=== PATIENT | male | born 1955 | race Caucasian/White ===

== ENCOUNTER 2024-12-11 14:54 | Inpatient (IN) | payer MEDICARE, MEDICAID ==
[~2024-12-11] VITALS: Ht 182.9 cm; Wt 68.5 kg
[~2024-12-11 14:54] MED LIST: AZEL6DRO5 EACHEYE; CEFD300C17 PO; DOCU-391 PO; METF-438 PO; PHEN-887 PO; SULF1TAB45 PO; tamsulosin
--- NOTE | 2024-12-11 15:17 | Physician Documentation ---
History of Present Illness ~ General Chief Complaint: See Chief Complaint Stated Complaint: MULTIPLE MED COMPLAINTS Time Seen by MD: 16:26 Primary Medical Doctor: NONE History of Present Illness Initial Comments This is a 69-year-old male who presents to the emergency department reporting that he was directed here by Dr. Ritchie for reversal of his colostomy. Patient was recently admitted here November 12, 2024 through November 18, 2024 at which point he had a large bowel obstruction due to a mass and is status post resection and placement of ostomy and Garcia at that time. He does also note that he has a history of type 2 diabetes and Parkinson's. He currently notes that he also has blisters to the backs of both heels. Denies chills or fever, CP or dyspnea. Medication Reconciliation Allergies: Coded Allergies: No Known Allergies (Unverified , 12/11/24) Scheduled Azelastine HCl (Azelastine HCl), 1 DROP EACHEYE BID, (Reported) Cefdinir (Cefdinir), 1 CAP PO BID, (Reported) Docusate Sodium (Docusate Sodium), 1 CAP PO BID, (Reported) Metformin HCl (Metformin HCl), 1 TAB PO BID, (Reported) Phenazopyridine HCl (Phenazopyridine HCl), 1 TAB PO TID, (Reported) Miscellaneous Medications Sulfamethoxazole/Trimethoprim (Septra Ds Tab), 1 TAB PO, (Reported) Discontinued Medications [tamsulosin], (Reported) Discontinued Reason: patient no longer taking [tamsulosin], (Reported) Discontinued Reason: patient no longer taking Past Medical History Past Medical History: Anxiety, Depression Past Surgical History: orthopedic surgeries Patient History: Patient reports no known family medical history. Drug Use: marijuana, other Lives with: Mother Lives In: Home Review of Systems ROS As stated above in the HPI, otherwise all systems are reviewed and negative. Physical Exam Physical Exam Vital Signs: Temperature: 97.5, Source: Temporal, Heart Rate: 102, Respiratory Rate: 16, BP: 92/62, Pulse Oximetry: 95, Weight: 68.500 Oxygen Flow Rate: 0 Physical Exam General: Alert, no apparent distress. Chronically ill appearing. HEENT: PERRL, EOMI, no injection, moist mucous membranes. Neck: Full range of motion. Respiratory: Lungs clear, no respiratory distress. Dim throughout. Chest: No accessory muscle use. Cardiovascular: Regular rate and rhythm, no murmurs. Gastrointestinal: Soft, nontender, nondistended. Bowels sounds present. Ostomy site not examined in triage. Extremities: Generalized weakness, presents in wheelchair. Neurologic: Oriented x4. Psychiatric: Normal mood and affect. Skin: Normal color, warm and dry. Legs not examined in triage. Progress Results/Orders Results/Orders Completed Orders - LUNA FALK MD Ondansetron Inj. (Zofran 4mg/2ml Vial) (12/11/24 17:45) Morphine 4mg/Ml Inj. (Morphine Inj.) (12/11/24 17:45) Vital Signs 12/11/24 12/11/24 12/11/24 12/11/24 15:09 17:32 18:13 18:23 Temp 97.5 Pulse 102 89 94 Resp 16 20 18 12 B/P (MAP) 92/62 101/49 (66) 111/65 (80) Pulse Ox 95 97 92 O2 Flow Rate 0 0 0 12/11/24 12/11/24 12/11/24 12/11/24 18:45 18:45 19:15 19:45 Temp 97.5 97.5 97.5 Pulse 89 93 89 Resp 16 14 12 14 B/P (MAP) 104/68 (80) 107/61 (76) 108/72 (84) Pulse Ox 95 93 96 O2 Flow Rate 0 0 0 Laboratory Tests Test 12/11/24 15:38 12/11/24 18:04 White Blood Count 7.9 Red Blood Count 4.54 L Hemoglobin 13.1 L Hematocrit 38.7 L Mean Corpuscular Volume 85.4 Mean Corpuscular Hemoglobin 28.8 Mean Corpuscular Hemoglobin Concent 33.7 Red Cell Distribution Width 15.8 H Platelet Count 464 H Mean Platelet Volume 6.7 L Neutrophils (%) (Auto) 63.9 Lymphocytes (%) (Auto) 24.5 Monocytes (%) (Auto) 7.8 Eosinophils (%) (Auto) 2.6 Basophils (%) (Auto) 1.2 H Neutrophils # (Auto) 5.0 Lymphocytes # (Auto) 1.9 Monocytes # (Auto) 0.6 Eosinophils # (Auto) 0.2 Basophils # (Auto) 0.1 CBC Comment Prothrombin Time 10.4 INR International Normalized Ratio 1.0 Coagulation Comments Sodium Level 135 Potassium Level 3.7 Chloride Level 99 Carbon Dioxide Level 27.4 Anion Gap 9 Blood Urea Nitrogen 12 Creatinine 0.66 Estimated GFR/1.73 m2 > 90 BUN/Creatinine Ratio 18.2 Glucose Level 269 H Lactic Acid Level 1.6 Calcium Level 8.6 Phosphorus Level 3.8 Magnesium Level 2.1 Total Bilirubin 0.2 Aspartate Amino Transf (AST/SGOT) 20 Alanine Aminotransferase (ALT/SGPT) 20 Alkaline Phosphatase 140 H C-Reactive Protein 0.94 H Pro-B-Type Natriuretic Peptide 651 H Total Protein 7.1 Albumin 3.0 L Globulin 4.1 Albumin/Globulin Ratio 0.7 L Procalcitonin < 0.05 Chemistry Comments Urine Specimen Description Garcia cath Urine Color Yellow Urine Clarity Clear Urine pH 6.0 Urine Specific Mckenzie 1.025 Urine Protein 30 H Urine Glucose (UA) Negative Urine Ketones Negative Urine Occult Blood Moderate H Urine Nitrite Negative Urine Bilirubin Negative Urine Urobilinogen 0.2 Urine Leukocyte Esterase Trace H Urine RBC 10-20 Urine WBC 20-30 H Urine Squamous Epithelial Cells None seen Urine Bacteria Few Urine Fine Granular Casts 0-3 Urine Mucus Few Urine Culture Indicated Indicated Volume Urine Centrifuged 10 ml Urine Comment Microbiology Date/Time Source Procedure Growth Status 12/11/24 18:48 Urine Garcia Cath Urine Culture - Preliminary Culture received. Resulted 12/11/24 15:44 Blood Hand Left Blood Culture - Preliminary NEGATIVE (LESS THAN 24 HOURS) Resulted Consults/PCP Consults/PCP : Additional Comment Consult: I spoke to the internal medicine service, for admission in the hospital Medical Decision Making Additional information obtaine: N/A Findings na Differential Diagnosis 69-year-old male presenting for a colostomy reversal. Patient instructed to come here by Dr. Ritchie. Patient will be admitted to have this done. Addendum ADDENDUM: I was briefly involved in the patient's care at time of admission. The reported plan was to admit for colostomy reversal 8pm: The patient was evaluated by Dr. Ritchie, general surgeon. He states that in fact he is not going to reverse his colostomy at this time. He feels the patient needs a urology consult to determine when his catheter can be removed. He also requests vascular evaluation of his legs, ABIs, given his PAD and wounds. 805pm: Spoke to the admitting residents, and relayed this message. Dima Butterfield MD Departure Disposition: ADMITTED INPATIENT Admitted to Inpatient Unit: to surgeon Impression: Primary Impression: Colostomy care Condition: Guarded Referrals: NO PRIMARY CARE PROVIDER (PCP) Signature Scribe Signature: x Attestation: The note accurately reflects work and decisions made by me.Teresa Espino NP 12/11/24 15:15 TERESA CAMPA NP Dec 11, 2024 15:16 LUNA FALK MD Dec 11, 2024 16:47 DIMA BUTTERFIELD MD Dec 11, 2024 19:22
[2024-12-11 16:03] LABS: MEAN PLATELET VOLUME 6.7 FL (7.4-10.4); RED CELL DISTRIBUTION WIDTH 15.8 % (11.5-14.5)
[2024-12-11 16:26] LABS: INR 1.0 INR
[2024-12-11 16:38] LABS: CREATININE 0.66 MG/DL (0.60-1.10); TOTAL CARBON DIOXIDE 27.4 MMOL/L (24-32); eCRCL 105 ML/MIN; eGFR > 90 ML/MIN
[2024-12-11] MEDS: morphine 4 MG/ML inj SYRINge IV ONE (18:23)
[2024-12-11] MEDS: ondansetron/PF 4mg/2ml inj IV ONE (18:28)
[2024-12-11 18:34] LABS: LEUKOCYTE ESTERASE ,URINE TRACE (Neg); NITRITES, URINE NEGATIVE (Neg); OCCULT BLOOD,URINE MODERATE (Neg)
[2024-12-11 18:43] LABS: UA COLLECTION TYPE FOLEY CATH
[2024-12-11 18:45] LABS: MUCUS STRANDS FEW /LPF (Neg); SQUAMOUS EPITHELIAL CELL,UR NONE SEEN /LPF (FEW)
[2024-12-11 18:47] LABS: FINE GRANULAR CAST 0-3 /LPF (NEGATIVE)
[2024-12-11] MEDS ORDERED: ondansetron/PF 4mg/2ml inj IV PRN (19:30)
[2024-12-11] MEDS ORDERED: magnesium hydroxide 30ml (MOM) UD suspension PO PRN (19:30)
[2024-12-11] MEDS ORDERED: mag hydrox/Alum hydrox/simeth 30ml oral suspension PO PRN (19:30)
[2024-12-11] MEDS ORDERED: magnesium sulf-water 4G/100mL 100 ML IV PRN (19:30)
[2024-12-11] MEDS ORDERED: magnesium sulf-water 2g/50mL 50 ML IV PRN (19:30)
[2024-12-11] MEDS ORDERED: potassium Cl 40MEQ/1/2NS 520ml 520 ML IV PRN (19:30)
[2024-12-11] MEDS ORDERED: magnesium Cl slow-release 64mg tablet PO PRN (19:30)
[2024-12-11] MEDS ORDERED: potassium Cl 20 mEq SR tablet PO PRN ×2 (19:30)
[2024-12-11] MEDS: docusate sod 100mg capsule PO SCH (20:00)
--- NOTE | 2024-12-11 20:08 | PROGRESS NOTE ---
Progress Note ID Providers to CC ~ Progress Note Progress Note: PT SEEN AND EXAMINED-NEEDS ARTERIAL DOPPLER LISA FRY MD Dec 11, 2024 20:08
[2024-12-11 20:17] LABS: PHOSPHORUS 3.8 MG/DL (2.3-4.5); PRO BRAIN NATRIURETIC PEPTIDE 651 PG/ML (0-125)
[2024-12-11] MEDS: K and/or MAG REPLACEMENT MC SCH (20:24)
[2024-12-11 22:00] VITALS: BP 145/78; PULSE 89; RESP 20; TEMP 97.8; O2SAT 96
--- NOTE | 2024-12-11 22:04 | HISTORY AND PHYSICAL-Residence ---
History & Physical Providers to CC Resident Creating Document: REJI ALVAREZ, RES ~ History of Present Illness Primary Medical Doctor: NONE Reason for Admit\Complaint: Black discoloration on right foot History of Present Illness A 69 years old male patient came to the ED reporting that he was advised to come for reversal of colostomy bag by Dr. Ritchie . Patient was discharged from this hospital on November 18 at which he had Sigmoidal mass obstructing colon, eroding into the bladder s/p exploratory laparotomy with en bloc sigmoid colon resection with Dr. Ritchie and Dr. Myers and placement of colostomy bag, Ashley at the time. Patient also reports new onset blackish discoloration on the heel of the right foot. Patient denies redness, swelling, fever, chills, pain. Patient also denies abdominal pain, diarrhea, constipation, reflux, dyspepsia, chest pain, difficulty in breathing, altered level of consciousness. ED physician consulted Dr. Ritchie. As per Dr. Ritchie, he is not planning for colostomy bag reversal for now and advised arterial Doppler of both legs. Allergies: Coded Allergies: No Known Allergies (Unverified , 12/11/24) Home Medications Home Medications Active Reported Phenazopyridine HCl 100 Mg Tablet 1 Tab PO TID [tamsulosin] 0.4mg Septra Ds Tab (Trimethoprim/Sulfamethoxazole) 800 Mg/160 Mg Tablet 1 Tab PO Docusate Sodium 100 Mg Capsule 1 Cap PO BID [tamsulosin] 0.4mg Azelastine HCl 0.05 % Drops 1 Drop EACHEYE BID Cefdinir 300 Mg Capsule 1 Cap PO BID Metformin HCl 1,000 Mg Tablet 1 Tab PO BID Past Medical History Past Medical History Type 2 diabetes mellitus- [id number] Essential tremors Parkinson's disease Past Surgical History Surgical History Comment Shoulder repair surgery, right knee replacement surgery, cholecystectomy Family History Family History: Patient reports no known family medical history. Past Social History Social History Comment Smokes half a pack of cigarettes per day since 14 years of age. Denies any illicit drug abuse over the last 40 years. Quit alcohol 42 years ago. Lives at home with a nephew. Minimally ambulates due to weakness but ambulates independently. 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 Gastrointestinal:No Abdominal pain, vomiting,nausea and melena. Normal appetite. No constipation,diarrhea, hematemesis, Musculoskeletal: No swelling or edema of extremities. Reports blackish discoloration on the right foot Integumentary: No change in skin, hair, nails. No swelling, bruising, abrasions Neurologic: No weakness,No headache, neck pain, numbness or tingling of the extremities, Psychiatric: No delusions, depression, loss of interest in normal activity or change in sleep pattern, hallucinations, suicidal ideations Endocrine: No fatigue, no weakness. polydipsia, polyuria, change in appetite, heat or cold intolerance, sweating, dry skin Hematological: No bleeding, petechiae, bruising Allergies: No asthma or urticaria Exam Vitals: Vital Signs Date Time Temp Pulse Resp B/P (MAP) Pulse Ox O2 Delivery O2 Flow Rate FiO2 12/11/24 18:23 12 12/11/24 18:13 94 111/65 (80) 92 0 12/11/24 15:09 97.5 General: Awake , alert and oriented to time,place, person, not in distress HEENT: Atraumatic, normocephalic, PERRLA, EOMI, anicteric sclera ; pink conjunctiva, moist mucos membranes Neck: Trachea midline. Supple, normal range of motion, no JVD, no lymphadenopathy Chest and Respiratory: Equal breath sounds bilaterally, no tachypnea, wheezing, ronchi,rubs .Chest wall is symmetric and without deformity. Cardiac: S1, S2 heard,Regular rate and rhythm, no murmurs ,no gallops, no rubs. Abdomen: Soft, No tenderness, nondistended, No guarding or rigidity, Coello's sign negative. normal bowel sounds x4 quadrant, no hepatosplenomegaly, surgical incision site is clean and clear with deneen, colostomy bag on left lower quadrant with fecaes MSK: Range of motion of all extremities are normal. There is no joint pain or joint swelling or joint erythema. There is no muscle pain or tenderness or swelling. Extremities: Essential tremors in both upper extremities. 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 Demarcated, dry black eschar measuring 6 cm x5cm in diameter ,with surrounding skin intact with no drainage or tenderness or erythema. Neurological: Mental status exam: alert and consciousness, orientation, memory, speech - Cranial nerve test: Cranial nerves II-XII intact. - Motor system: Normal Nutrition, normal tone, Power 5/5, no involuntary movements - Sensory system: Intact - Reflex testing: Biceps, triceps and knee reflexes 2+ - Cerebellar: Normal Psychiatry: Affect and mood are normal Diagnostic Data Last Recorded Lab Results: 12/12/2443112/12/24431 Diagnostic Data: Laboratory Tests Test 12/11/24 15:38 Prothrombin Time 10.4 SECONDS (9.0-12.0) INR International Normalized Ratio 1.0 INR Coagulation Comments Advance Care Planning Advanced Care plannin - 30 Minutes (I spent a total of 17 minutes on reviewing various resuscitative measures/ACP with the patient at the time of admission. The patient has decided on DNR status) Additional Plan Possible peripheral arterial disease Stage III pressure injury/arterial ulcer/ diabetic foot ulcer Follow up arterial Doppler Dr. Ritchie was consulted. Recommmended arterial doppler Follow up with Dr. Ritchie in the morning with arterial Doppler Urinary tract infection Chronic indwelling ashley Catheter from 11/18/2024 after surgery for Sigmoidal mass obstructing colon, eroding into the bladder No SIRS/sepsis UA is positive for esterase, WBC and bacteria Follow up on urine culture WBC, lactate, procalcitonin are normal IV Rocephin 1 gm daily Patient does not want ashley, consult urology recommendation for Ashley removal in the morning NIDDM type 2 HbA1c is 8.0 on 11/12/24 Lantus 15 units HS daily Placed on hypoglycemia/hypoglycemia protocol Sigmoidal mass obstructing colon, eroding into the bladder s/p exploratory laparotomy with en bloc sigmoid colon resection with Dr. Ritchie and Dr. Myers on 11/13/2024 Patient has colostomy bag Parkinson's disease Essential tremor Advised outpatient management Code status: DNR DVT prophylaxis : SCDs Nutrition: carb Controlled diet Physical therapy: ordered Line/tube: PIV Analgesia/sedation: Morphine Disposition: Continue medical management, Follow up with Dr. Ritchie in the morning with arterial Doppler, consult urology recommendation for Ashley removal Resident attestation The above note has been reviewed and supervised by a senior resident PGY2/PGY3 Patient was seen, examined and discussed with the attending physician Titus Alvarez MD Internal Medicine Resident, PGY 1 Date of Service: Dec 12, 2024 Billing Provider: RHETT REYES MD Addendum Attestation I agree with the residents assessment and plan as below: 69 year old male admitted for with ischemia of the right foot Plan: arterial doppler vascular surgery consult start lantus and short acting insulin ceftriaxone for uti CCT 51 min using HIPPA compliant A/V technology REJI ALVAREZ, RES Dec 11, 2024 22:04 RHETT REYES MD Dec 12, 2024 19:36
[2024-12-11] MEDS ORDERED: dextrose 50%-water 50ml dispensing syringe IV PRN ×2 (22:15)
[2024-12-11] MEDS ORDERED: glucagon, human recombinant 1mg kit SUBCUT PRN (22:15)
[2024-12-11] MEDS ORDERED: DEXTROSE 15 GM of carb/4 tabs (each vial/BOTTLE has 4 tablets) PO PRN ×2 (22:15)
[2024-12-11] MEDS: insulin glargine (Lantus) pen - multi-dose SQ SCH (22:15)
[2024-12-11 23:00] VITALS: RESP 18; O2SAT 96
[2024-12-11] MEDS: CefTRIAXone/D5W-Rocephin 1gm 50 ML IV SCH (23:53)
[2024-12-12 05:00] VITALS: BP 128/78; PULSE 75; RESP 18; TEMP 97.5; O2SAT 97
[2024-12-12 06:06] LABS: MEAN PLATELET VOLUME 6.8 FL (7.4-10.4); RED CELL DISTRIBUTION WIDTH 15.7 % (11.5-14.5)
[2024-12-12 06:14] LABS: CREATININE 0.49 MG/DL (0.60-1.10); TOTAL CARBON DIOXIDE 29.8 MMOL/L (24-32); eCRCL 142 ML/MIN; eGFR > 90 ML/MIN
[2024-12-12] MEDS: INSULIN LISPRO 100 UNIT/ML INSULN.PEN MULTI-DOSE SQ SCH (07:00)
[2024-12-12 08:00] VITALS: RESP 18; O2SAT 96
--- NOTE | 2024-12-12 11:52 | VASCULAR REPORT ---
Ankle Brachial Index - Single Level Date: 12/12/2024 10:22 AM Clinical History: wounds Comparison: VASC VL ARTERIAL on DOS: 12/12/24 Indieftions Bilateral foot wounds Risk Factors Smoking Pressures/Indices Right AB Left AB Brachial 130mmHg Brachial 130mmHg Ankle(PT) 50mmHg 0.38 Ankle(PT) 40mmHg 0.31 Ankle(DP) 40mmHg 0.31 Ankle(DP) no flowmmHg 0 CONCLUSION 1. as aboce 2. Monophasic bilateral PIPELINES SUPERINTENDENT, Right DPA. Occluded Left DPA. 3. Right MNIGO at rest 0.38, Left MINGO at rest 0.31 indicating severe disease.
--- NOTE | 2024-12-12 11:55 | VASCULAR REPORT ---
BILATERAL Lower Extremity Arterial Duplex Date: 12/12/2024 09:54 AM Clinical History: wounds Comparison: VASC VL MINGO on DOS: 12/12/24 Technique: Duplex Doppler evaluation including color Doppler and spectral/pulsed waveform analysis of the lower extremity arteries was performed. Finding: Inarations Bilateral foot wounds VELOCITY AND DOPPLER WAVEFORM ANALYSIS RIGHT cm/se Waveform Severity LEFT cm/se Waveform Severity c c dCFA 44.1 Monophasic dCFA 49.3 Monophasic Prof Fem 56.4 Monophasic Prof Fem 45.0 Monophasic Art. Art Fem Art Occluded Fem Art Occluded Prox. Prox. Fem Art Occluded Fem Art Occluded Mid. Mid. Fem Art Occluded Fem Art Occluded Dist. Dist. Pop Art(AK) Occluded Pop Art(AK) 39.3 Monophasic Pop Art(BK) Occluded Pop Art(BK) 19.0 Monophasic INVESTMENT BANKING ASSOCIATE Dist. 19.7 Monophasic INVESTMENT BANKING ASSOCIATE Dist. 45.2 Monophasic Per Art Dist. 13.7 Monophasic Per Art Dist. 14.0 Monophasic ISAK Dist. 21.1 Monophasic ISAK Dist. Occluded DPA 16.0 Monophasic DPA Occluded CONCLUSION Bilateral BLUEPRINT READER with monophasic flow indicating inflow disease. Occlusions demonstrated Right SFA, Right Pop, Left SFA, Left ISAK, Left DPA. Monophasic flow demonstrated throughout remainder of bilateral lower extremities
--- NOTE | 2024-12-12 14:05 | PROGRESS NOTE ---
Progress Note ID Providers to CC ~ Progress Note Progress Note: quentin noted/cta pending LISA FRY MD Dec 12, 2024 14:05
[2024-12-12 18:00] VITALS: BP 129/78; PULSE 80; RESP 15; TEMP 98; O2SAT 96
--- NOTE | 2024-12-12 19:42 | PROGRESS NOTE ---
Daily Progress Note Providers to CC ~ Antibiotic Timeout Antibiotic Ordered?: Yes Subjective Patient is seen in presence of nursing staff Anna Marie today. Patient is very rude and disrespectful during conversation. Further management per Dr. Carlson Patient has signs of severe peripheral vascular disease bilaterally, in diagnostic studies Occlusions demonstrated Right SFA, Right Pop, Left SFA, Left ISAK, Left DPA.. Objective Vital Signs Date Time Temp Pulse Resp B/P (MAP) Pulse Ox O2 Delivery O2 Flow Rate FiO2 12/12/24 15:10 15 12/12/24 08:00 96 Room Air 0.0 12/12/24 05:00 97.5 75 128/78 (95) Result Diagram: 12/12/24 0432 12/12/24 0432 General-patient not in any acute distress, alert awake oriented, chronically ill-appearing HEENT-atraumatic normocephalic, neck supple without elevated JVD, no thyromegaly or carotid bruit. No lymphadenopathy bilaterally. Eyes-no icterus or pallor seen in eyes Chest-clear to auscultation bilaterally, breathing nonlabored no tachypnea, no wheezing, no crepitation, no crackles. Heart-S1-S2 normal, regular heart rate no murmur Abdomen bowel sounds positive on auscultation, soft nondistended nontender no guarding, no rigidity. [place] present in over midline colostomy bag present. Skin no active skin rash/signs of chronic hyperpigmentation present over lower extremity Neurology-grossly intact, nonfocal alert awake oriented Extremity- no pedal edema able to move all 4 extremities. No pedal pulsations on palpation bilaterally Psychiatry - patient is not confused or agitated , appeared frustrated but somehow cooperated during physical examination Coagulation Studies Laboratory Tests Test 12/11/24 15:38 Prothrombin Time 10.4 SECONDS (9.0-12.0) INR International Normalized Ratio 1.0 INR Coagulation Comments Problem\Assessment\Plan severe peripheral arterial disease Stage III pressure injury/arterial ulcer/ diabetic foot ulcer Follow up arterial Doppler Dr. Ritchie was consulted. Recommmended arterial doppler Further management per Urinary tract infection Chronic indwelling ashley Catheter from 11/18/2024 after surgery for Sigmoidal mass obstructing colon, eroding into the bladder No SIRS/sepsis UA is positive for esterase, WBC and bacteria Follow up on urine culture WBC, lactate, procalcitonin are normal IV Rocephin 1 gm daily DC Ashley, we will contact Urology specialist if needed NIDDM type 2 HbA1c is 8.0 on 11/12/24 Lantus 15 units HS daily Placed on hypoglycemia/hypoglycemia protocol Sigmoidal mass obstructing colon, eroding into the bladder s/p exploratory laparotomy with en bloc sigmoid colon resection with Dr. Ritchie and Dr. Myers on 11/13/2024 Patient has colostomy bag Parkinson's disease Essential tremor Advised outpatient management Code status: DNR DVT prophylaxis : SCDs Nutrition: carb Controlled diet Physical therapy: ordered Line/tube: PIV Analgesia/sedation: Morphine Patient's current condition is guarded we will continue to follow patient along with Dr. Ritchie Date of Service: Dec 12, 2024 Billing Provider: JUWAN BERNAL MD Common Visit Codes: [id number] INP/OBS CARE(HIGH) JUWAN BERNAL MD Dec 12, 2024 19:42
[2024-12-12 20:00] VITALS: RESP 18; O2SAT 98
[2024-12-12 22:00] VITALS: BP 142/82; PULSE 74; RESP 18; TEMP 98.5; O2SAT 98
[2024-12-13] VITALS (7 sets, daily range): BP systolic 108–157; BP diastolic 61–85; PULSE 52–80; RESP 16–18; TEMP 97.2–98.9; O2SAT 96–98
[2024-12-13 05:57] LABS: MEAN PLATELET VOLUME 6.5 FL (7.4-10.4); RED CELL DISTRIBUTION WIDTH 15.5 % (11.5-14.5)
[2024-12-13 06:19] LABS: CREATININE 0.42 MG/DL (0.60-1.10); TOTAL CARBON DIOXIDE 31.8 MMOL/L (24-32); eCRCL 165 ML/MIN; eGFR > 90 ML/MIN
[2024-12-13] MEDS: LidoCAINE 2% Topical Jelly 11mL syringe (UROJET) TOP ONE (16:43)
--- NOTE | 2024-12-13 19:41 | PROGRESS NOTE ---
Daily Progress Note Providers to CC ~ Antibiotic Timeout Antibiotic Ordered?: Yes Subjective Patient was nice today and he apologized for his rude behavior in presence of nursing staff. Dr. Carlson following the patient repeat abdomen and pelvis CT scan done results pending. Dr. Van wants to continue Ashley catheter and ordered cystogram to ensure the bladder is healed. According to her if not completely healed then patient will have urine leak into the abdomen which may require repeat abdominal surgery. Ashley catheter replaced. Patient is able to ambulate Objective Vital Signs Date Time Temp Pulse Resp B/P (MAP) Pulse Ox O2 Delivery O2 Flow Rate FiO2 12/13/24 18:00 97.7 80 16 157/81 (106) 97 Room Air 12/13/24 08:00 0.0 12/13/24 02:23 21 Result Diagram: 12/13/24 0455 12/13/24 0455 General-patient not in any acute distress, alert awake oriented, chronically ill-appearing HEENT-atraumatic normocephalic, neck supple without elevated JVD, no thyromegaly or carotid bruit. No lymphadenopathy bilaterally. Eyes-no icterus or pallor seen in eyes Chest-clear to auscultation bilaterally, breathing nonlabored no tachypnea, no wheezing, no crepitation, no crackles. Heart-S1-S2 normal, regular heart rate no murmur Abdomen bowel sounds positive on auscultation, soft nondistended nontender no guarding, no rigidity. [place] present in over midline colostomy bag present. Skin no active skin rash, signs of chronic hyperpigmentation present over lower extremity Neurology-grossly intact, nonfocal alert awake oriented Extremity- no pedal edema able to move all 4 extremities. 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 Ritchie was consulted. Recommmended arterial doppler Further management per Urinary tract infection Chronic indwelling ashley Catheter from 11/18/2024 after surgery for Sigmoidal mass obstructing colon, eroding into the bladder No SIRS/sepsis UA is positive for esterase, WBC and bacteria Follow up on urine culture WBC, lactate, procalcitonin are normal IV Rocephin 1 gm daily 12/13/24-Dr. Van wants to continue Ashley catheter and ordered cystogram to ensure the bladder is healed. According to her if not completely healed then patient will have urine leak into the abdomen which may require repeat abdominal surgery. Ashley catheter replaced. Patient is able to ambulate NIDDM type 2 HbA1c is 8.0 on 11/12/24 Lantus 15 units HS daily Placed on hypoglycemia/hypoglycemia protocol Sigmoidal mass obstructing colon, eroding into the bladder s/p exploratory laparotomy with en bloc sigmoid colon resection with Dr. Ritchie and Dr. Myers on 11/13/2024 Patient has colostomy bag Parkinson's disease Essential tremor Advised outpatient management Code status: DNR DVT prophylaxis : SCDs Nutrition: carb Controlled diet Physical therapy: ordered Line/tube: PIV Analgesia/sedation: Morphine Patient's current condition is guarded we will continue to follow patient along with Dr. Ritchie and Dr. Van Date of Service: Dec 13, 2024 Billing Provider: JUWAN BERNAL MD Common Visit Codes: [id number] INP/OBS CARE(HIGH) JUWAN BERNAL MD Dec 13, 2024 19:41
--- NOTE | 2024-12-13 20:08 | RADIOLOGY REPORT ---
COMPUTERIZED TOMOGRAPHY ABDOMEN AND PELVIS (CYSTOGRAM) REASON FOR EXAM: Cystogram, evaluate for urine leak s/p bladder repair COMPARISON: CT ABDOMEN+PELVIS W IV CON on DOS: 11/11/24 TECHNIQUE: The exam was performed on a multidetector scanner. A dilute mixture of Omnipaque 300 was instilled into the urinary bladder via a Garcia catheter using gravity to patient tolerance. Utilizing 2.5 mm of collimation, spiral scans were acquired through the pelvis before and after contrast administration. A post void scan was also obtained. Automated exposure control was used. CONTRAST ADMINISTERED: 300 mL dilute cystografin. MEDICATIONS: The patient's medication list was reviewed. RADIATION DOSE: CTDI: 23 mGy DLP: 1981 mGy-cm FINDINGS: The visualized lung bases are grossly clear. There is no pleural effusion. There is no pericardial effusion. The spleen is not enlarged. The liver is at the upper limits of normal for size. Evaluation of the abdominal organs is suboptimal in the absence of intravenous contrast. The gallbladder is surgically absent. Unenhanced appearance of the pancreas is unremarkable. The adrenal glands appear grossly normal. The kidneys are similar in size. There is no hydronephrosis of either kidney. There is a 3 mm nonobstructive calculus at the interpolar region of the right kidney. There is no abdominal aortic aneurysm. There is extensive atherosclerosis. There is some residual contrast within the rectal stump. There is a left lower quadrant colostomy. There is circumferential thickening of the distal colon up to the ostomy consistent with colitis. The colonic stool burden is overall small. The appendix is not seen. There is no pathologic distention of the small bowel. No free fluid is identified in the abdomen or pelvis. There is no pathologic lymphadenopathy identified by size criteria. On the cystogram images, there is a 2.0 cm length region along the left bladder wall with a thickened, polypoid appearance. There is no leakage of contrast from the urinary bladder into the pelvis. Post evacuation, there is trace hyperdensity within a small bowel loop which abuts the left bladder dome suggesting a small fistula. There are degenerative changes throughout the visualized spine. No acute osseous abnormality is identified. 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 No free leakage of bladder contents into the extraperitoneal pelvis. Focally thickened left bladder wall with a polypoid appearance concerning for residual mass. Direct visualization with cystoscopy is recommended.
--- NOTE | 2024-12-13 20:10 | PROGRESS NOTE ---
Progress Note ID Providers to CC ~ Progress Note Progress Note: no complaints/cta pending LISA FRY MD Dec 13, 2024 20:10
[2024-12-14 04:35] LABS: MEAN PLATELET VOLUME 6.0 FL (7.4-10.4); RED CELL DISTRIBUTION WIDTH 15.5 % (11.5-14.5)
[2024-12-14 04:40] LABS: CREATININE 0.52 MG/DL (0.60-1.10); TOTAL CARBON DIOXIDE 32.5 MMOL/L (24-32); eCRCL 134 ML/MIN; eGFR > 90 ML/MIN
[2024-12-14 05:00] VITALS: BP 141/78; PULSE 71; RESP 16; TEMP 97.4; O2SAT 97
[2024-12-14 08:33] VITALS: RESP 16
[2024-12-14] MEDS ORDERED: aminophylline 250mg/10ml inj. IV PRN (10:50)
[2024-12-14] MEDS ORDERED: metoprolol tartrate 1mg/ml inj IV PRN (10:50)
--- NOTE | 2024-12-14 16:21 | PROGRESS NOTE ---
Progress Note ID Providers to CC ~ Progress Note Progress Note: awaiting cta LISA FRY MD Dec 14, 2024 16:21
[2024-12-14 18:00] VITALS: BP 152/77; PULSE 83; RESP 18; TEMP 97.7; O2SAT 95
[2024-12-14 20:00] VITALS: RESP 18
--- NOTE | 2024-12-14 20:31 | PROGRESS NOTE ---
Daily Progress Note Providers to CC ~ Antibiotic Timeout Antibiotic Ordered?: Yes Subjective Patient was seen in presence of nursing staff. Patient was waiting to go to CTA today. Dr. Carlson following the patient. 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 No free leakage of bladder content into extraperitoneal pelvis. Focally thickened left bladder wall with polypoid appearance concerning for residual mass. Objective Vital Signs Date Time Temp Pulse Resp B/P (MAP) Pulse Ox O2 Delivery O2 Flow Rate FiO2 12/14/24 08:33 16 Room Air 0.0 12/14/24 05:00 97.4 71 141/78 (99) 97 12/13/24 20:30 21 Result Diagram: 12/14/2440712/14/24407 General-patient not in any acute distress, alert awake oriented, chronically ill-appearing HEENT-atraumatic normocephalic, neck supple without elevated JVD, no thyromegaly or carotid bruit. No lymphadenopathy bilaterally. Eyes-no icterus or pallor seen in eyes Chest-clear to auscultation bilaterally, breathing nonlabored no tachypnea, no wheezing, no crepitation, no crackles. Heart-S1-S2 normal, regular heart rate no murmur Abdomen bowel sounds positive on auscultation, soft nondistended nontender no guarding, no rigidity. [place] present in over midline colostomy bag present. Ashley catheter in place Skin no active skin rash, signs of chronic hyperpigmentation present over lower extremity Neurology-grossly intact, nonfocal alert awake oriented Extremity- no pedal edema able to move all 4 extremities. 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 Ritchie was consulted. Recommmended arterial doppler Further management per Urinary tract infection Chronic indwelling ashley Catheter from 11/18/2024 after surgery for Sigmoidal mass obstructing colon, eroding into the bladder No SIRS/sepsis UA is positive for esterase, WBC and bacteria Follow up on urine culture WBC, lactate, procalcitonin are normal IV Rocephin 1 gm daily 12/13/24-Dr. Van wants to continue Ashley catheter and ordered cystogram to ensure the bladder is healed. According to her if not completely healed then patient will have urine leak into the abdomen which may require repeat abdominal surgery. Ashley catheter replaced. Patient is able to ambulate 12/14/24-Patient was waiting to go to CTA today. Dr. Carlson following the patient. 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 No free leakage of bladder content into extraperitoneal pelvis. Focally thickened left bladder wall with polypoid appearance concerning for residual mass. NIDDM type 2 HbA1c is 8.0 on 11/12/24 Lantus 15 units HS daily Placed on hypoglycemia/hypoglycemia protocol Sigmoidal mass obstructing colon, eroding into the bladder s/p exploratory laparotomy with en bloc sigmoid colon resection with Dr. Ritchie and Dr. Myers on 11/13/2024 Patient has colostomy bag Parkinson's disease Essential tremor Advised outpatient management Code status: DNR DVT prophylaxis : SCDs Nutrition: carb Controlled diet Physical therapy: ordered Line/tube: PIV Analgesia/sedation: Morphine Patient's current condition is guarded we will continue to follow patient along with Dr. Ritchie and Dr. Van Date of Service: Dec 14, 2024 Billing Provider: JUWAN BERNAL MD Common Visit Codes: [id number] INP/OBS CARE(HIGH) JUWAN BERNAL MD Dec 14, 2024 20:30
[2024-12-14] MEDS: guaiFENesin/DM 10ml UD oral syrup PO PRN (21:06)
[2024-12-15] VITALS (10 sets, daily range): BP systolic 100–137; BP diastolic 54–85; PULSE 61–92; RESP 14–17; TEMP 97–98.7; O2SAT 95–99
[2024-12-15 05:54] LABS: MEAN PLATELET VOLUME 6.8 FL (7.4-10.4); RED CELL DISTRIBUTION WIDTH 15.5 % (11.5-14.5)
[2024-12-15 06:14] LABS: CREATININE 0.50 MG/DL (0.60-1.10); TOTAL CARBON DIOXIDE 26.9 MMOL/L (24-32); eCRCL 139 ML/MIN; eGFR > 90 ML/MIN
[2024-12-15] MEDS: regadenoson 0.4mg/5ml syringe IV PRN (09:09)
--- NOTE | 2024-12-15 11:07 | RADIOLOGY REPORT ---
Procedure: NM NM IRLANDA SCAN Exam Date: 12/15/2024 08:40 AM Reason for study/Clinical History: preop Comparison Study: None Myocardial Perfusion Study with SPECT Technique: The patient received an intravenous injection of 8.8 mCi of technetium-99m sestamibi while at rest. After a short delay, SPECT tomographic images of the heart were obtained. The patient then went to the stress lab where they received an intravenous infusion of 0.[address] andard protocol. 44.9 mCi of technetium-99m sestamibi was injected intravenously immediately after the start of the lexiscan infusion. Gated SPECT tomographic images of the heart were acquired and processed. Findings: No reversible perfusion defect. Fixed inferior wall defect. End diastolic volume: 87 mL End systolic volume: 41 mL The left ventricular ejection fraction is 53 %. (normal greater than 50%) Impression: No reversible defect. Fixed inferior wall defect. The left ventricular ejection fraction is 53 %.
--- NOTE | 2024-12-15 19:59 | PROGRESS NOTE ---
Progress Note ID Providers to CC ~ Progress Note Progress Note: rose neg-awaiting cta LISA FRY MD Dec 15, 2024 19:59
--- NOTE | 2024-12-15 20:05 | PROGRESS NOTE ---
Daily Progress Note Providers to CC ~ Antibiotic Timeout Antibiotic Ordered?: Yes Subjective Patient was seen in presence of nursing staff CT is down unable to get CTA as recommended by Dr. Carlson. Theeiscan negative. Patient ambulating okay participated with physical therapy. Objective Vital Signs Date Time Temp Pulse Resp B/P (MAP) Pulse Ox O2 Delivery O2 Flow Rate FiO2 12/15/24 10:39 97.0 78 17 137/85 (102) 99 Room Air 12/15/24 09:21 0.0 12/15/24 08:00 21 Result Diagram: 12/15/24 0456 12/15/246 General-patient not in any acute distress, alert awake oriented, chronically ill-appearing HEENT-atraumatic normocephalic, neck supple without elevated JVD, no thyromegaly or carotid bruit. No lymphadenopathy bilaterally. Eyes-no icterus or pallor seen in eyes Chest-clear to auscultation bilaterally, breathing nonlabored no tachypnea, no wheezing, no crepitation, no crackles. Heart-S1-S2 normal, regular heart rate no murmur Abdomen bowel sounds positive on auscultation, soft nondistended nontender no guarding, no rigidity. [place] present in over midline colostomy bag present. Ashley catheter in place Skin no active skin rash, signs of chronic hyperpigmentation present over lower extremity Neurology-grossly intact, nonfocal alert awake oriented Extremity- no pedal edema able to move all 4 extremities. 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 Ritchie was consulted. Recommmended arterial doppler CT is down unable to get CTA as recommended by Dr. Carlson. Liset negative. Further management per Urinary tract infection Chronic indwelling ashley Catheter from 11/18/2024 after surgery for Sigmoidal mass obstructing colon, eroding into the bladder No SIRS/sepsis UA is positive for esterase, WBC and bacteria Follow up on urine culture WBC, lactate, procalcitonin are normal IV Rocephin 1 gm daily 12/13/24-Dr. Van wants to continue Ashley catheter and ordered cystogram to ensure the bladder is healed. According to her if not completely healed then patient will have urine leak into the abdomen which may require repeat abdominal surgery. Ashley catheter replaced. Patient is able to ambulate 12/14/24-Patient was waiting to go to CTA today. Dr. Carlson following the patient. 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 No free leakage of bladder content into extraperitoneal pelvis. Focally thickened left bladder wall with polypoid appearance concerning for residual mass. NIDDM type 2 HbA1c is 8.0 on 11/12/24 Lantus 15 units HS daily Placed on hypoglycemia/hypoglycemia protocol Sigmoidal mass obstructing colon, eroding into the bladder s/p exploratory laparotomy with en bloc sigmoid colon resection with Dr. Ritchie and Dr. Myers on 11/13/2024 Patient has colostomy bag Parkinson's disease Essential tremor Advised outpatient management Code status: DNR DVT prophylaxis : SCDs Nutrition: carb Controlled diet Physical therapy: ordered Line/tube: PIV Analgesia/sedation: Morphine Patient's current condition is guarded we will continue to follow patient along with Dr. Ritchie and Dr. Van Date of Service: Dec 15, 2024 Billing Provider: JUWAN BERNAL MD Common Visit Codes: [id number] INP/OBS CARE(HIGH) JUWAN BERNAL MD Dec 15, 2024 20:05
[2024-12-16 03:54] LABS: MEAN PLATELET VOLUME 6.3 FL (7.4-10.4); RED CELL DISTRIBUTION WIDTH 15.5 % (11.5-14.5)
[2024-12-16 04:00] LABS: CREATININE 0.53 MG/DL (0.60-1.10); TOTAL CARBON DIOXIDE 29.2 MMOL/L (24-32); eCRCL 131 ML/MIN; eGFR > 90 ML/MIN
[2024-12-16 06:00] VITALS: BP 99/33; PULSE 60; RESP 20; TEMP 98.6; O2SAT 93
[2024-12-16] MEDS ORDERED: iohexol 350 MG/ML 50ML vial IV ONE ×2 (07:36)
[2024-12-16 08:00] VITALS: RESP 16
--- NOTE | 2024-12-16 11:14 | RADIOLOGY REPORT ---
Exam: CT CTA ABDOMEN LOWER EXTR RUNOFF History: Nonhealing wound. Comparison Study: None Technique: Multidetector spiral CT of the abdomen was performed from lung bases to pubic symphysis. Axial imaging was performed with intravenous contrast following the uneventful administration of 150 ml Omnipaque 350. Coronal and sagittal multiplanar reformats were obtained from the axial data set by the technologist. Radiation Dose : 1. Abdomen/Pelvis: CTDIvol 7.5 mGy, DLP 1061.2 mGy*cm. Findings: Vascular: The celiac, superior and inferior mesenteric arteries are patent. The bilateral renal arteries are patent. The splenic artery is patent. There is noncalcified plaque measuring 9 mm in thickness causing significant, about 75% stenosis of the distal abdominal aorta and about 80% just proximal to the iliac bifurcation. There is marked atherosclerotic calcification in the right common iliac, external and internal iliac arteries. There is occlusion of the right common iliac and external iliac artery. The right internal iliac artery is patent with mild atherosclerotic calcifications. Right hemipelvis/ lower extremity: There is distal reconstitution at the level of the right common femoral artery which shows about 75% stenosis. There is high-grade multifocal severe stenosis of the superficial femoral artery throughout its visualized course this is with a segment of near complete occlusion measuring 3.1 cm in the mid SFA and near complete occlusion in the distal SFA measuring 3.1 cm. The popliteal artery is occluded. The tibioperoneal trunk is occluded. There is opacification of the right anterior tibial and posterior tibial arteries though there is multifocal stenosis from atherosclerotic disease. The right peroneal artery is occluded. Soft tissue swelling in the right lower extremity. No fluid collection. No cortical destruction. Left hemipelvis/ lower extremity: There is high-grade stenosis of the left common iliac artery. Left internal iliac artery is patent. The proximal left external iliac artery shows about 70% stenosis at its origin followed by complete occlusion throughout its visualized course. There is distal reconstitution at the level of the left common femoral artery which also shows about 30% stenosis. There is high-grade multifocal stenosis of the left superficial femoral artery throughout proximal portion and multifocal significant high-grade stenosis in its mid segment with near complete occlusion at its distal segment. There is reconstitution at the level of the popliteal artery which shows an estimated 50% stenosis. The left tibioperoneal trunk is patent. There is moderate multifocal stenosis in the left posterior tibial artery. The left anterior tibial and peroneal arteries are occluded. There soft tissue swelling in the left lower extremity with a possible soft tissue defect in the anterolateral lower extremity. No fluid collection. No cortical destruction. CT angiography abdomen pelvis: Lung Bases: Lung bases are clear. Visualized portions of the heart and pericardium are unremarkable. Liver: The liver is normal in size. No focal lesions. Gallbladder and Biliary Tree: The gallbladder is surgically absent. No intrahepatic or extrahepatic biliary ductal dilatation. Spleen: Unremarkable Pancreas: The pancreas enhances normally and there are no focal lesions. The main pancreatic duct is not dilated. Adrenal Glands: Unremarkable Kidneys: Kidneys enhance symmetrically. No calculi or hydronephrosis. GI tract: The stomach is grossly normal in appearance. Small bowel loops are underdistended. There is a left lower quadrant colostomy. There is diffuse mucosal thickening throughout the colon particularly at the level of the ostomy. Contrast is noted in the rectum but does not extend to the rest of the bowel. No findings to suggest acute appendicitis. Peritoneum/mesentery/retroperitoneum. No evidence of free intraperitoneal air. Small volume abdominopelvic free fluid. No evidence of suspicious lymphadenopathy. Abdominal Wall: Bilateral fat containing inguinal hernia. Urinary Bladder: There is urinary bladder wall thickening. Garcia catheter is present. There is air in the urinary bladder. Pelvic Organs: The prostate is enlarged measuring 5.4 cm. Musculoskeletal: No aggressive focal bony lesions, acute fractures or dislocation. IMPRESSION: 1. 70-80% stenosis of the abdominal aorta in its distal segment and just proximal to the iliac bifurcation respectively. Occlusion of the right common iliac and external iliac arteries. Significant stenosis of the right common femoral artery, multifocal high-grade stenosis of the superficial femoral artery and occlusion of the right popliteal artery. Occlusion of the tibioperoneal trunk the right peroneal artery. Soft tissue swelling of the right leg. 2. Occlusion of the majority of the left external iliac artery. Hmild stenosis of the left common femoral artery. High-grade multifocal stenosis of the majority of the left superficial femoral artery, 50% stenosis of the left popliteal artery. Occlusion of the left anterior tibial and peroneal arteries. Multifocal high-grade stenosis in the left popliteal artery without occlusion. Soft tissue swelling and possible soft tissue defect in the left anterolateral lower extremity.
--- NOTE | 2024-12-16 14:57 | PROGRESS NOTE ---
Progress Progress Note: Patient is knownt o be from partial resection of his bladder. CT Cystogram recently does not show a definitive fistula, but rather an area of concern. I would recommend his catheter stays in place for 2 more weeks, at which point I would recommend repeat cystogram. Problem\Assessment\Plan Problems/Diagnosis: (1) History of bladder repair surgery Status: Chronic Assessment & Plan: CT cystogram shows no definitive fistula, but a trace area of concern. I actually cannot visualize a sure fistula at this time, but would recommend giving the bladder a couple of weeks further with the catheter at which point I would recommend a repeat CT cystogram before removal of the catheter. - Catheter for 2 weeks further - CT cystogram in 2 weeks to evaluate for fistula again Results/Orders Result Diagram: 12/16/24 0320 12/16/24319 Dietary Evaluation Recommendations by RD: Other - see comments Comments: II 12/21 +wnd^proDMdn F/u 12/15: Pt changed to regular diet 12/13 per request PO 100% meals meeting nutrition needs. Glu remains elevated but pt refusing insulin and carb-restricted diet. 2 BM's 12/14 w/ no colostomy volume documented receiving routine colace per EMR. No nutrition interventions at this time. Will continue to follow. Recommendations: 1) Continue regular diet per physician as pt demanding no diet restrictions. If pt to become compliant w/ diet restriction, 75 carb control 2) Bowel care per rx 3) Weekly scaled weights Expected Outcomes/Goals: Meet minimum 75% estimated protein and energy needs, wt maintenance, bowel regularity, wound healing, BG 80-180 mg/dL MICHA EATON MD Dec 16, 2024 14:57
[2024-12-16 18:00] VITALS: BP 130/66; PULSE 82; RESP 17; TEMP 99.4; O2SAT 95
--- NOTE | 2024-12-16 18:59 | PROGRESS NOTE ---
Progress Note ID Providers to CC ~ Progress Note Progress Note: aortibifem LISA FRY MD Dec 16, 2024 18:59
[2024-12-16 20:00] VITALS: RESP 17; O2SAT 95
--- NOTE | 2024-12-16 20:31 | PROGRESS NOTE ---
Daily Progress Note Providers to CC ~ Antibiotic Timeout Antibiotic Ordered?: Yes Subjective Patient had aorta with runoff CTA done today in waiting for Dr. Carlson s recommended. he was feeling very hungry and not feeling happy about it. Later today Dr. Carlson evaluated the patient started patient on regular diet plan for aorti fem surgery in a.m. Objective Vital Signs Date Time Temp Pulse Resp B/P (MAP) Pulse Ox O2 Delivery O2 Flow Rate FiO2 12/16/24 17:16 15 12/16/24 08:00 Room Air 0.0 12/16/24 06:00 98.6 60 99/33 (55) 93 12/15/24 20:45 21 Result Diagram: 12/16/24 0320 12/16/24 0320 General-patient not in any acute distress, alert awake oriented, chronically ill-appearing HEENT-atraumatic normocephalic, neck supple without elevated JVD, no thyromegaly or carotid bruit. No lymphadenopathy bilaterally. Eyes-no icterus or pallor seen in eyes Chest-clear to auscultation bilaterally, breathing nonlabored no tachypnea, no wheezing, no crepitation, no crackles. Heart-S1-S2 normal, regular heart rate no murmur Abdomen bowel sounds positive on auscultation, soft nondistended nontender no guarding, no rigidity. [place] present in over midline colostomy bag present. Ashley catheter in place Skin no active skin rash, signs of chronic hyperpigmentation present over lower extremity Neurology-grossly intact, nonfocal alert awake oriented Extremity- no pedal edema able to move all 4 extremities. 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 Ritchie was consulted. Recommmended arterial doppler CT is down unable to get CTA as recommended by Dr. Carlson. Lexiscan negative. Further management per Urinary tract infection Chronic indwelling ashley Catheter from 11/18/2024 after surgery for Sigmoidal mass obstructing colon, eroding into the bladder No SIRS/sepsis UA is positive for esterase, WBC and bacteria Follow up on urine culture WBC, lactate, procalcitonin are normal IV Rocephin 1 gm daily 12/13/24-Dr. Van wants to continue Ashley catheter and ordered cystogram to ensure the bladder is healed. According to her if not completely healed then patient will have urine leak into the abdomen which may require repeat abdominal surgery. Ashley catheter replaced. Patient is able to ambulate 12/14/24-Patient was waiting to go to CTA today. Dr. Carlson following the patient. 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 No free leakage of bladder content into extraperitoneal pelvis. Focally thickened left bladder wall with polypoid appearance concerning for residual mass. NIDDM type 2 HbA1c is 8.0 on 11/12/24 Lantus 15 units HS daily Placed on hypoglycemia/hypoglycemia protocol Sigmoidal mass obstructing colon, eroding into the bladder s/p exploratory laparotomy with en bloc sigmoid colon resection with Dr. Ritchie and Dr. Myers on 11/13/2024 Patient has colostomy bag Parkinson's disease Essential tremor Advised outpatient management Code status: DNR DVT prophylaxis : SCDs Nutrition: carb Controlled diet Physical therapy: ordered Line/tube: PIV Analgesia/sedation: Morphine Patient's current condition is guarded we will continue to follow patient along with Dr. Ritchie and Dr. Van Date of Service: Dec 16, 2024 Billing Provider: JUWAN BERNAL MD Common Visit Codes: [id number] INP/OBS CARE(HIGH) JUWAN BERNAL MD Dec 16, 2024 20:31
[2024-12-16] MEDS: polyethylene glycol 3350 17gm powd pack PO SCH (21:04)
[2024-12-17] VITALS (26 sets, daily range): BP systolic 86–163; BP diastolic 46–80; PULSE 65–110; RESP 8–18; TEMP 97.8–98.5; O2SAT 95–100
[2024-12-17 05:24] LABS: APTT 26 SECONDS (22-32); INR 1.0 INR
--- NOTE | 2024-12-17 07:01 | RADIOLOGY REPORT ---
CHEST RADIOGRAPH Indication: pre-op Technique: Single frontal view of the chest was obtained Comparison: 11/11/2024 FINDINGS: Lines and Tubes: None Lungs: No focal consolidation. Pleura: No effusion. No pneumothorax. Cardiomediastinal contours: Unremarkable Bones: No acute osseous abnormality. IMPRESSION: 1. No acute cardiopulmonary disease.
--- NOTE | 2024-12-17 07:10 | ELECTROCARDIOGRAPH REPORT ---
[facility] Test Date: 2024-12-17 Test Time: 07:08:22 Pat Name: KAREN JOLLEY Department: [facility] 3N Patient ID: [id number] Room: [place] [address] B Gender: M Kiln Placer: : 1955 Requested By: LISA FRY Order Number: [id number] Reading MD: Dr. MANGO Pierre Measurements Intervals [place] Rate: 77 P: -20 VA: 162 QRS: 37 QRSD: 100 T: 72 QT: 389 QTc: 441 Interpretive Statements Sinus rhythm Minimal ST elevation, inferior leads Electronically Signed On 12-17-2024 9:24:[address] MANGO Pierre Please click the below link to view image of tracing.
[2024-12-17] MEDS ORDERED: heparin 10,000 units/1 ML INJ ONE (09:06)
[2024-12-17] MEDS ORDERED: iohexol 300mg/ml 100ml inj. ONE (09:06)
[2024-12-17] MEDS ORDERED: protamine sulfate 10mg/ml inj. ONE (09:07)
[2024-12-17 10:00] LABS: MEAN PLATELET VOLUME 6.3 FL (7.4-10.4); RED CELL DISTRIBUTION WIDTH 15.8 % (11.5-14.5)
--- NOTE | 2024-12-17 10:14 | PROGRESS NOTE ---
Progress Note ID Providers to CC ~ Progress Note Progress Note: discussed procedure including risks/benefits/alternatives LISA FRY MD Dec 17, 2024 10:14
[2024-12-17 10:16] LABS: CREATININE 0.50 MG/DL (0.60-1.10); TOTAL CARBON DIOXIDE 27.8 MMOL/L (24-32); eCRCL 139 ML/MIN; eGFR > 90 ML/MIN
[2024-12-17] MEDS ORDERED: LIDOcaine 2% (20mg/ml) 5ml vial ONE (12:35)
[2024-12-17] MEDS ORDERED: fentaNYL /PF 50mcg/ml 5ml ampule ONE (12:35)
[2024-12-17] MEDS ORDERED: propofol inj 20 ML IV ONE (12:35)
[2024-12-17] MEDS ORDERED: dexamethasone sod phosphate 4mg/ml inj. ONE (12:35)
[2024-12-17] MEDS ORDERED: MIDAZolam 1 MG/ML 5ML VIAL ONE (12:35)
[2024-12-17] MEDS ORDERED: rocuronium 10mg/ml inj IV ONE ×3 (12:36→16:16)
[2024-12-17] MEDS ORDERED: ondansetron/PF 4mg/2ml inj ONE (12:36)
[2024-12-17] MEDS ORDERED: albumin (Human) 5% 250ml 250 ML IV ONE ×4 (14:09)
[2024-12-17] MEDS ORDERED: albumin (Human) 5% 250ml 750 ML IV ONE (14:10)
[2024-12-17] MEDS ORDERED: ceFOXitin 1000 MG inj ONE ×2 (14:42)
[2024-12-17] MEDS ORDERED: heparin 1,000unit/ml 10ml vial 10 ML ONE (14:48)
[2024-12-17] MEDS ORDERED: nitroPRUSSIDE 0.2mg/mL in NS 100 ML IV SCH (14:55)
[2024-12-17] MEDS ORDERED: morphine 4 MG/ML inj SYRINge IV PRN ×2 (14:55)
[2024-12-17] MEDS ORDERED: hydrALAZINE 20mg/ml inj. IV PRN (14:55)
[2024-12-17] MEDS ORDERED: fentaNYL/PF 50MCG/1 ML 2ML syringe IV PRN ×2 (14:55)
[2024-12-17] MEDS ORDERED: labetalol 20mg/4ml (5mg/ml) syringe IV PRN (14:55)
[2024-12-17] MEDS ORDERED: ondansetron/PF 4mg/2ml inj IV PRN ×3 (14:55→17:40)
[2024-12-17] MEDS ORDERED: fentaNYL/PF 50MCG/1 ML 2ML syringe ONE (16:16)
--- NOTE | 2024-12-17 16:23 | PROGRESS NOTE ---
Anesthesia - Line Placement Line Placement CVP: Internal Jugular (Right) Arterial Line: Radial (Right Radial US Guided Micro catheter) Separate "Sticks": Ultrasound Guidance, Vasc Structure Identified, Patency Confirmed, Entry Observed by [place]. Sterile Protocol or Technique: Sterile Seldinger tech Prep: Chloraprep Complications None TATIANA DEL VALLE MD Dec 17, 2024 16:23
--- NOTE | 2024-12-17 17:37 | OPERATIVE REPORT ---
Operative Report Providers to CC ~ Date of Procedure: Dec 17, 2024 Pre-Operative Diagnosis: PAD Post-Operative Diagnosis SAME as PRE-Op Procedure Performed aortobifem with 16 x 8 graft/bilat fiber machine tender endarterectomy Surgeon: evy chavarria Anesthesiologist: Elie Sarah Type of Anesthesia: General Findings: occluded aorta/bilat fiber machine tender plaque Estimated Blood Loss: 500 ml Specimen Removed: aortic plaque/bilat fiber machine tender plaque LISA FRY MD Dec 17, 2024 17:37
[2024-12-17] MEDS ORDERED: FENTANYL CITRATE/D5W/PF 100 ML IV SCH (17:40)
[2024-12-17] MEDS ORDERED: MIDAZOLAM IN NACL,ISO-OSMOT/PF 100 ML IV PRN (17:40)
[2024-12-17 18:14] LABS: ABG BASE EXCESS -4.7 mmol/L (-2.0-3.0); ABG HCO3 23.3 mmol/L (21.0-28.0); ABG OXYGEN SATURATION 99.6 % (94.0-98.0); ABG PCO2 (T) 56.6 mmHg (35.0-48.0); ABG PH (T) 7.233 (7.350-7.450); ABG PO2 (T) 220.6 mmHg (83.0-108.0); FCOHb 1.7 % (0.5-1.5); FHHb 0.4 % (0.0-5.0); FIO2 70.0 mmHg/%; FMetHb 0.3 % (0.0-1.5); FO2Hb 97.6 % (94.0-98.0); PATIENT TEMPERATURE 37.0; PEEP 5 cm H2O; RESPIRATORY RATE 8 b/min; TIDAL VOLUME 550 mL; TOTAL HEMOGLOBIN 11.9 G/dl (13.5-17.5)
--- NOTE | 2024-12-17 18:17 | OPERATIVE REPORT ---
DATE OF SURGERY: 12/17/2024 DICTATING PHYSICIAN: Darryn Ritchie MD PREOPERATIVE DIAGNOSES: Multilevel peripheral vascular disease with diminished MINGO and symptomatic claudication. POSTOPERATIVE DIAGNOSES: Multilevel peripheral vascular disease with diminished MINGO and symptomatic claudication. PROCEDURES PERFORMED: Aortobifemoral bypass using a 16 x 8 graft in an end-to-side fashion off the aorta. Bilateral common femoral endarterectomy. SURGEON: Darryn Ritchie MD PRINTER HELPER: Oren. ANESTHESIA: General/Dr. Sarah. DRAINS: None. INDICATIONS FOR OPERATION: A 69-year-old male with a history of colon cancer, ended up with a nonhealing wound of the right heel. Ultimately found to have severe peripheral arterial disease with ABIs of approximately 0.[address] revealed occluded iliacs. The patient was taken to surgery for aortobifem. INTRAOPERATIVE FINDINGS: The patient had extensive aortic calcification with an occluded distal abdominal aorta. The femorals had severe plaque bilaterally requiring endarterectomy. DESCRIPTION OF PROCEDURE: The patient was placed supine on the operating table. After the induction of general anesthesia and placement of endotracheal tube, the left lower extremity was prepped and draped after the colostomy was closed. After a timeout was performed, attention was turned to the left groin where a longitudinal incision was made, the femoral sheath was identified and incised, and the common femoral artery was identified and isolated. Same procedure was then repeated in the right groin. A midline incision was then made in the abdomen. The abdominal cavity was entered and adhesions were taken down. The patient had extensive small bowel adhesions from his previous laparotomy and colon resection, which made the exposure somewhat difficult. The posterior peritoneum was incised exposing the infrarenal abdominal aorta. The incision was extended down to the aortic bifurcation. For exposure, tunnels were created between the aorta and both groins retroperitoneally. A 16 x 8 bifemoral graft was then brought to the field and passed through the tunnels that were created. The patient was heparinized with 6000 units of heparin. After a few minutes, the aorta was occluded and arteriotomy was extended proximally and distally. He had a large amount of clot within the aorta, which required removal to obtain adequate inflow. Adequate inflow was subsequently established. The graft was then beveled and the end-to-side anastomosis was constructed with a running suture of 4-0 Prolene. Upon completion of the suture line, the limbs of the graft were flushed. Hemostasis was found to be adequate. Attention was then turned to the right groin where the common femoral artery was occluded proximally and incised. The profunda was occluded. An endarterectomy of the right common femoral artery was then performed. The graft was trimmed to length and end-to-side anastomosis was constructed with a running suture of 5-0 Prolene. Flow was reestablished to the right lower extremity. Attention was turned to the left groin where in a similar fashion, the common femoral artery was occluded. An arteriotomy was made proximally and distally. The graft was trimmed to length. An endarterectomy was performed of the left common femoral artery and an end-to-side anastomosis was constructed with a running suture of 5-0 Prolene. The flow was then established to the left lower extremity. The patient had good flow in the profunda branches bilaterally. Hemostasis was found to be adequate. The posterior peritoneum was then closed over the graft with a running suture of 2-0 Vicryl. The wound was irrigated with a large amount of antibiotic-containing solution. The rectus fascia was closed with a running looped PDS suture. The skin was closed with clips. Dressing was applied and the colostomy was opened. Groin incisions were closed in layers. Skin was closed with clips. A Prevena was placed. The patient was subsequently transferred to the ICU in critical condition after reversing from general anesthesia. Darryn Ritchie MD TID: [id number] RECEIPT: [id number] /[facility]
[2024-12-17] MEDS: propofol 1000mg/100ml bottle 100 ML IV SCH (18:20)
[2024-12-17] MEDS ORDERED: FENTANYL-0.9 % NACL/PF 100 ML IV SCH (18:20)
[2024-12-17] MEDS: FENTANYL-0.9 % NACL/PF 100 ML IV SCH (18:33)
[2024-12-17] MEDS: propofol 1000mg/100ml bottle 100 ML IV ONE (18:35)
[2024-12-17] MEDS: niCARDipine-NS 40mg/200ml IVPB 200 ML IV ONE (18:39)
--- NOTE | 2024-12-17 18:50 | PROGRESS NOTE ---
Daily Progress Note Providers to CC ~ Antibiotic Timeout Antibiotic Ordered?: Yes Subjective Patient is waiting to go for aortobifemoral surgical procedure with Dr. Cralson today. He was transferred later today to CICU and was intubated. Objective Vital Signs Date Time Temp Pulse Resp B/P (MAP) Pulse Ox O2 Delivery O2 Flow Rate FiO2 12/17/24 18:14 50 12/17/24 18:02 94 8 100 12/17/24 12:10 97.8 130/75 (93) 12/17/24 11:35 Room Air 12/17/24 08:06 0.0 Result Diagram: 12/17/2492312/17/24 0924 General-patient not in any acute distress, alert awake oriented, chronically ill-appearing HEENT-atraumatic normocephalic, neck supple without elevated JVD, no thyromegaly or carotid bruit. No lymphadenopathy bilaterally. Eyes-no icterus or pallor seen in eyes Chest-clear to auscultation bilaterally, breathing nonlabored no tachypnea, no wheezing, no crepitation, no crackles. Heart-S1-S2 normal, regular heart rate no murmur Abdomen bowel sounds positive on auscultation, soft nondistended nontender no guarding, no rigidity. [place] present in over midline colostomy bag present. Ashley catheter in place Skin no active skin rash, signs of chronic hyperpigmentation present over lower extremity Neurology-grossly intact, nonfocal alert awake oriented Extremity- no pedal edema able to move all 4 extremities. No pedal pulsations on palpation bilaterally Psychiatry - patient is not confused or agitated , cooperated during physical examination Coagulation Studies Laboratory Tests Test 12/17/24 18:18 Coagulation Comments Problem\Assessment\Plan severe peripheral arterial disease Stage III pressure injury/arterial ulcer/ diabetic foot ulcer Follow up arterial Doppler Dr. Ritchie was consulted. Recommmended arterial doppler CT is down unable to get CTA as recommended by Dr. Carlson. Lexiscan negative. Further management per 12/17-Patient is waiting to go for aortobifemoral surgical procedure with Dr. Carlson today. He was transferred later today to CICU and was intubated. Urinary tract infection Chronic indwelling ashley Catheter from 11/18/2024 after surgery for Sigmoidal mass obstructing colon, eroding into the bladder No SIRS/sepsis UA is positive for esterase, WBC and bacteria Follow up on urine culture WBC, lactate, procalcitonin are normal IV Rocephin 1 gm daily 12/13/24-Dr. Van wants to continue Ashley catheter and ordered cystogram to ensure the bladder is healed. According to her if not completely healed then patient will have urine leak into the abdomen which may require repeat abdominal surgery. Ashley catheter replaced. Patient is able to ambulate 12/14/24-Patient was waiting to go to CTA today. Dr. Carlson following the patient. 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 No free leakage of bladder content into extraperitoneal pelvis. Focally thickened left bladder wall with polypoid appearance concerning for residual mass. NIDDM type 2 HbA1c is 8.0 on 11/12/24 Lantus 15 units HS daily Placed on hypoglycemia/hypoglycemia protocol Sigmoidal mass obstructing colon, eroding into the bladder s/p exploratory laparotomy with en bloc sigmoid colon resection with Dr. Ritchie and Dr. Myers on 11/13/2024 Patient has colostomy bag Parkinson's disease Essential tremor Advised outpatient management Code status: DNR DVT prophylaxis : SCDs Nutrition: carb Controlled diet Physical therapy: ordered Line/tube: PIV Analgesia/sedation: Morphine Patient's current condition is guarded we will continue to follow patient along with Dr. Ritchie and Dr. Van in CICU Date of Service: Dec 17, 2024 Billing Provider: JUWAN BERNAL MD Common Visit Codes: [id number] INP/OBS CARE(HIGH) JUWAN BERNAL MD Dec 17, 2024 18:50
[2024-12-17 18:53] LABS: INR 1.2 INR
[2024-12-17 19:06] LABS: APTT > 139 SECONDS (22-32)
[2024-12-17] MEDS: albumin (Human) 5% 250ml 250 ML IV ONE ×2 (20:20→20:25)
--- NOTE | 2024-12-17 21:27 | RADIOLOGY REPORT ---
CHEST RADIOGRAPH Indication: POST OP Technique: Single frontal view of the chest was obtained COMPARISON: DI CHEST,SINGLE VIEW on DOS: 12/17/24 FINDINGS: ET tube tip terminating approximately 7 cm above the melissa. NG tube in the proximal stomach. Right IJ line with tip in the lower SVC. Minimal bibasilar atelectasis. Lungs otherwise generally clear. IMPRESSION: Mild bibasilar atelectasis.
[2024-12-17] MEDS: NORepinephrine 8mg/ 250ml NS 250 ML IV SCH (23:07)
[2024-12-17] MEDS: nitroPRUSSIDE 0.2mg/mL in NS 100 ML IV SCH (23:07)
[2024-12-17] MEDS: ringers solution, lacted 1,000 ML IV SCH ×2 (23:08)
[2024-12-18] VITALS (28 sets, daily range): BP systolic 96–155; BP diastolic 44–67; PULSE 72–87; RESP 12–24; O2SAT 92–100
[2024-12-18] MEDS: INSULIN LISPRO 100 UNIT/ML INSULN.PEN MULTI-DOSE SQ ONE (01:54)
[2024-12-18 03:02] LABS: MEAN PLATELET VOLUME 6.3 FL (7.4-10.4); RED CELL DISTRIBUTION WIDTH 15.6 % (11.5-14.5)
[2024-12-18 03:18] LABS: CREATININE 0.49 MG/DL (0.60-1.10); PHOSPHORUS 3.6 MG/DL (2.3-4.5); TOTAL CARBON DIOXIDE 25.2 MMOL/L (24-32); eCRCL 142 ML/MIN; eGFR > 90 ML/MIN
[2024-12-18 03:30] LABS: APTT 27 SECONDS (22-32); INR 1.1 INR
[2024-12-18 03:38] LABS: ABG BASE EXCESS -3.8 mmol/L (-2.0-3.0); ABG HCO3 20.2 mmol/L (21.0-28.0); ABG OXYGEN SATURATION 98.5 % (94.0-98.0); ABG PCO2 (T) 32.3 mmHg (35.0-48.0); ABG PH (T) 7.411 (7.350-7.450); ABG PO2 (T) 112.3 mmHg (83.0-108.0); FCOHb 1.8 % (0.5-1.5); FHHb 1.5 % (0.0-5.0); FIO2 40.0 mmHg/%; FMetHb 0.3 % (0.0-1.5); FO2Hb 96.4 % (94.0-98.0); MODE SIMV; PATIENT TEMPERATURE 36.3; PEEP 5 cm H2O; RESPIRATORY RATE 14 b/min; TIDAL VOLUME 550 mL; TOTAL HEMOGLOBIN 11.8 G/dl (13.5-17.5)
[2024-12-18] MEDS: ringers solution, lacted 1,000 ML IV SCH ×2 (04:55→05:11)
[2024-12-18] MEDS: niCARDipine-NS 40mg/200ml IVPB 200 ML IV SCH (05:10)
[2024-12-18] MEDS ORDERED: dextrose 50%-water 50ml dispensing syringe IV PRN (08:05)
[2024-12-18] MEDS ORDERED: glucagon, human recombinant 1mg kit SUBCUT PRN (08:05)
[2024-12-18] MEDS ORDERED: DEXTROSE 15 GM of carb/4 tabs (each vial/BOTTLE has 4 tablets) PO PRN ×2 (08:05)
--- NOTE | 2024-12-18 08:09 | RADIOLOGY REPORT ---
CHEST RADIOGRAPH Indication: ET Tube PLacement Technique: Single frontal view of the chest was obtained Comparison: DI CHEST,SINGLE VIEW on DOS: 12/17/24, DI CHEST,SINGLE VIEW on DOS: 12/17/24, DI CHEST,SINGLE VIEW on DOS: 12/17/24 FINDINGS: ET tube tip terminating approximately 7 cm above the melissa. NG tube in the proximal stomach. Right IJ line with tip in the lower SVC. Minimal bibasilar atelectasis. Lungs otherwise generally clear. IMPRESSION: 1. Mild bibasilar atelectasis.
[2024-12-18] MEDS: INSULIN LISPRO 100 UNIT/ML INSULN.PEN MULTI-DOSE SQ SCH (08:30)
[2024-12-18] MEDS ORDERED: HYDROmorphone inj. 0.5 MG/0.5 ML DISP.SYRIN IV PRN (11:35)
--- NOTE | 2024-12-18 12:08 | VASCULAR REPORT ---
Ankle Brachial Index - Single Level Date: 12/18/2024 10:55 AM Clinical History: PAD Comparison: VASC VL MINGO on DOS: 12/12/24, VASC VL ARTERIAL on DOS: 12/12/24 Findings: Indeations Aortobifemoral bypass, bilateral [employer] endarterectomy 12/17/2024 Risk Factors Diabetes Smoking Surgery/Intervention Bypass Graft 1 : Pressures/Indices Right MINGO Left AB Brachial Brachial 126mmHg Ankle(PT) 90mmHg 0.71 Ankle(PT) 60mmHg 0.48 Ankle(DP) 70mmHg 0.5 Ankle(DP) 60mmHg 0.48 CONCLUSION 2. Monophasic bilaterally. 3. Right MINGO at rest 0.71, Left MINGO at rest 0.48 indicating moderate disease bilaterally.
[2024-12-18] MEDS ORDERED: metoclopramide 5 mg/ml inj IV PRN (14:20)
[2024-12-18] MEDS ORDERED: FENTANYL-0.9 % NACL/PF 100 ML IV SCH (14:30)
[2024-12-18] MEDS: HYDROmorph/NS 0.2 mg/ml PCA 100 ML IV SCH (15:09)
[2024-12-18] MEDS ORDERED: OXYC-145 PO (16:07)
--- NOTE | 2024-12-18 19:32 | PROGRESS NOTE ---
Daily Progress Note Providers to CC ~ Antibiotic Timeout Antibiotic Ordered?: Yes Subjective Patient was seen in CICU in presence of nursing staff currently on pressor agent he is extubated. Mildly lethargic partially cooperated during exam Objective Vital Signs Date Time Temp Pulse Resp B/P (MAP) Pulse Ox O2 Delivery O2 Flow Rate FiO2 12/18/24 18:16 15 12/18/24 18:00 82 121/62 (81) 94 Room Air 12/18/24 15:00 2.0 12/18/24 14:00 97.9 12/18/24 10:26 30 Result Diagram: 12/18/24 0247 12/18/24 0247 General-patient is chronically ill-appearing, mildly lethargic HEENT-atraumatic normocephalic, neck supple without elevated JVD, Eyes-no icterus or pallor seen in eyes Chest-decreased lung sounds to auscultation bilaterally, Heart-S1-S2 normal, regular heart rate no murmur Abdomen -bowel sounds positive on auscultation, soft nondistended nontender no guarding, no rigidity. [place] present in over midline colostomy bag present. Ashley catheter in place . Bilateral surgical wound present in groin , dressing in place Skin -signs of chronic hyperpigmentation present over lower extremity Neurology-mildly lethargic partially cooperated during physical exam Extremity- no pedal edema able to move all upper extremities. No pedal pulsations on palpation bilaterally Coagulation Studies Laboratory Tests Test 12/18/24 02:47 Prothrombin Time 11.3 SECONDS (9.0-12.0) INR International Normalized Ratio 1.1 INR Activated Partial Thromboplast Time 27 SECONDS (22-32) Coagulation Comments Problem\Assessment\Plan severe peripheral arterial disease Stage III pressure injury/arterial ulcer/ diabetic foot ulcer Follow up arterial Doppler Dr. Ritchie was consulted. Recommmended arterial doppler CT is down unable to get CTA as recommended by Dr. Carlson. Lexiscan negative. Further management per 12/17-Patient is waiting to go for aortobifemoral surgical procedure with Dr. Carlson today. He was transferred later today to CICU and was intubated. 12/18-status post aortobifemoral bypass, bilateral common femoral endarterectomy Urinary tract infection Chronic indwelling ashley Catheter from 11/18/2024 after surgery for Sigmoidal mass obstructing colon, eroding into the bladder No SIRS/sepsis UA is positive for esterase, WBC and bacteria Follow up on urine culture WBC, lactate, procalcitonin are normal IV Rocephin 1 gm daily 12/13/24-Dr. Van wants to continue Ashley catheter and ordered cystogram to ensure the bladder is healed. According to her if not completely healed then patient will have urine leak into the abdomen which may require repeat abdominal surgery. Ashley catheter replaced. Patient is able to ambulate 12/14/24-Patient was waiting to go to CTA today. Dr. Carlson following the patient. 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 No free leakage of bladder content into extraperitoneal pelvis. Focally thickened left bladder wall with polypoid appearance concerning for residual mass. NIDDM type 2 HbA1c is 8.0 on 11/12/24 Lantus 15 units HS daily Placed on hypoglycemia/hypoglycemia protocol Sigmoidal mass obstructing colon, eroding into the bladder s/p exploratory laparotomy with en bloc sigmoid colon resection with Dr. Ritchie and Dr. Myers on 11/13/2024 Patient has colostomy bag Parkinson's disease Essential tremor Advised outpatient management Code status: DNR DVT prophylaxis : SCDs Nutrition: carb Controlled diet Physical therapy: ordered Line/tube: PIV Analgesia/sedation: Morphine Patient's current condition is guarded we will continue to follow patient along with Dr. Ritchie and Dr. Van in CICU Date of Service: Dec 18, 2024 Billing Provider: JUWAN BERNAL MD Common Visit Codes: [id number] INP/OBS CARE(MOD) JUWAN BERNAL MD Dec 18, 2024 19:32
[2024-12-18] MEDS: mineral oil/petrolatum ophthal oint EACHEYE SCH (20:00)
[2024-12-18] MEDS: metoclopramide 5 mg/ml inj IV SCH (20:01)
[2024-12-19] VITALS (20 sets, daily range): BP systolic 102–149; BP diastolic 52–79; PULSE 73–89; RESP 9–18; TEMP 97.6–97.8; O2SAT 88–98
--- NOTE | 2024-12-19 00:23 | PROGRESS NOTE ---
Progress Note ID Providers to CC ~ Progress Note Progress Note: complains of pain/vss/LE well perfused/labs noted a/p 1. s/p aortobifem-doing well/start pt LISA FRY MD Dec 19, 2024 00:23
[2024-12-19 05:31] LABS: MEAN PLATELET VOLUME 6.4 FL (7.4-10.4); RED CELL DISTRIBUTION WIDTH 15.2 % (11.5-14.5)
[2024-12-19 05:42] LABS: CREATININE 0.44 MG/DL (0.60-1.10); PHOSPHORUS 2.4 MG/DL (2.3-4.5); TOTAL CARBON DIOXIDE 32.4 MMOL/L (24-32); eCRCL 158 ML/MIN; eGFR > 90 ML/MIN
--- NOTE | 2024-12-19 12:54 | PROGRESS NOTE ---
Progress Note ID Providers to CC ~ Progress Note Progress Note: pain improving/vss/abd-min distention/LE-well perfused/labs noted a/p 1. s/p aortobifem-doing well/advance diet-to tele-resume pt LISA FRY MD Dec 19, 2024 12:54
--- NOTE | 2024-12-19 16:45 | CONSULTATION ---
DATE OF CONSULTATION: 12/11/2024 DICTATING PHYSICIAN: Darryn Ritchie MD HISTORY OF PRESENT ILLNESS: The patient is a 69-year-old male, well known to me, recently hospitalized with a colonic mass involving the bladder for which he underwent a sigmoid resection with end colostomy and bladder reconstruction after resection. The patient did reasonably well. He was recently at ____ requesting colostomy reversal as well as complaining of a right foot area of discoloration. The patient was transferred to [facility] for further evaluation and treatment. Further questioning, he complaints of rest pain. He has a long history of tobacco use. No previous history of vascular disease. He does have a history of diabetes. PAST MEDICAL HISTORY: Diabetes, Parkinson's, recently diagnosed colon cancer. PAST SURGICAL HISTORY: Sigmoid resection with bladder resection and bladder reconstruction. HOME MEDICATIONS: Include Septra, Colace, azelastine, cefdinir, metformin. ALLERGIES: None. SOCIAL HISTORY: Ongoing tobacco use. PHYSICAL EXAMINATION: GENERAL: The patient is a well-nourished, thin male, in minimal distress. VITAL SIGNS: Unremarkable. HEART: Regular rate and rhythm. LUNGS: Clear to auscultation. ABDOMEN: Well-healed incision with a patent colostomy. EXTREMITIES: Right lower extremity has a nonhealing wound of the heel with some discoloration with diminished pedal pulses. LABORATORY DATA: Includes WBC 7, hematocrit 38, platelet count 464. Chemistries unremarkable. IMPRESSION: * Status post colostomy for colon cancer. * Right foot discoloration, question of vascular disease. * History of diabetes. * History of Parkinson's. RECOMMENDATIONS: Lower extremity Doppler studies with a CTA to better define lower extremity anatomy. Continue wound care. Consult Urology regarding bladder dysfunction. Darryn Ritchie MD TID: [id number] RECEIPT: [id number] KB/SUM
[2024-12-19] MEDS: aspirin 81mg, enteric-coated 1 TAB TABLET.DR PO SCH (18:02)
--- NOTE | 2024-12-19 20:13 | PROGRESS NOTE ---
Daily Progress Note Providers to CC ~ Antibiotic Timeout Antibiotic Ordered?: Yes Subjective Patient was seen in CICU he is already extubated looks comfortable and he mentioned that he do not want anybody to change his medication except for Dr. Carlson Objective Vital Signs Date Time Temp Pulse Resp B/P (MAP) Pulse Ox O2 Delivery O2 Flow Rate FiO2 12/19/24 17:29 89 12/19/24 17:00 14 12/19/24 17:00 128/78 (95) Room Air 12/19/24 16:00 88 12/19/24 13:00 98.8 12/19/24 03:00 2.0 12/18/24 10:26 30 Result Diagram: 12/19/24 0500 12/19/24 0500 General-patient is chronically ill-appearing, not lethargic looks comfortable HEENT-atraumatic normocephalic, neck supple without elevated JVD, Eyes-no icterus or pallor seen in eyes Chest-decreased lung sounds to auscultation bilaterally, Heart-S1-S2 normal, regular heart rate no murmur Abdomen -bowel sounds positive on auscultation, soft nondistended nontender no guarding, no rigidity. [place] present in over midline colostomy bag present. Ashley catheter in place . Bilateral surgical wound present in groin , dressing in place Skin -signs of chronic hyperpigmentation present over lower extremity Neurology-mildly lethargic partially cooperated during physical exam Extremity- no pedal edema able to move all upper extremities. No pedal pulsations on palpation bilaterally Coagulation Studies Laboratory Tests Test 12/18/24 02:47 Prothrombin Time 11.3 SECONDS (9.0-12.0) INR International Normalized Ratio 1.1 INR Activated Partial Thromboplast Time 27 SECONDS (22-32) Coagulation Comments Problem\Assessment\Plan severe peripheral arterial disease Stage III pressure injury/arterial ulcer/ diabetic foot ulcer Follow up arterial Doppler Dr. Ritchie was consulted. Recommmended arterial doppler CT is down unable to get CTA as recommended by Dr. Carlson. Lexiscan negative. Further management per 12/17-Patient is waiting to go for aortobifemoral surgical procedure with Dr. Carlson today. He was transferred later today to CICU and was intubated. 12/18-status post aortobifemoral bypass, bilateral common femoral endarterectomy Urinary tract infection Chronic indwelling ashley Catheter from 11/18/2024 after surgery for Sigmoidal mass obstructing colon, eroding into the bladder No SIRS/sepsis UA is positive for esterase, WBC and bacteria Follow up on urine culture WBC, lactate, procalcitonin are normal IV Rocephin 1 gm daily 12/13/24-Dr. Van wants to continue Ashley catheter and ordered cystogram to ensure the bladder is healed. According to her if not completely healed then patient will have urine leak into the abdomen which may require repeat abdominal surgery. Ashley catheter replaced. Patient is able to ambulate 12/14/24-Patient was waiting to go to CTA today. Dr. Carlson following the patient. 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 No free leakage of bladder content into extraperitoneal pelvis. Focally thickened left bladder wall with polypoid appearance concerning for residual mass. NIDDM type 2 HbA1c is 8.0 on 11/12/24 Lantus 15 units HS daily Placed on hypoglycemia/hypoglycemia protocol Sigmoidal mass obstructing colon, eroding into the bladder s/p exploratory laparotomy with en bloc sigmoid colon resection with Dr. Ritchie and Dr. Myers on 11/13/2024 Patient has colostomy bag Parkinson's disease Essential tremor Advised outpatient management Code status: DNR DVT prophylaxis : SCDs Nutrition: carb Controlled diet Physical therapy: ordered Line/tube: PIV Analgesia/sedation: Morphine Patient's current condition is guarded we will continue to follow patient along with Dr. Ritchie and Dr. Van in CICU Date of Service: Dec 19, 2024 Billing Provider: UJWAN BERNAL MD Common Visit Codes: [id number] INP/OBS CARE(HIGH) JUWAN BERNAL MD Dec 19, 2024 20:13
[2024-12-20 02:00] VITALS: BP 130/69; PULSE 88; RESP 17; TEMP 97; O2SAT 95
[2024-12-20] MEDS: dextrose 50%-water 50ml dispensing syringe IV PRN (05:50)
[2024-12-20 06:00] VITALS: BP 127/66; PULSE 71; RESP 20; TEMP 97.3; O2SAT 97
[2024-12-20 06:20] LABS: MEAN PLATELET VOLUME 6.5 FL (7.4-10.4); RED CELL DISTRIBUTION WIDTH 14.7 % (11.5-14.5)
[2024-12-20 06:55] LABS: CREATININE 0.29 MG/DL (0.60-1.10); TOTAL CARBON DIOXIDE 31.8 MMOL/L (24-32); eCRCL 239 ML/MIN; eGFR > 90 ML/MIN
[2024-12-20 06:56] LABS: PHOSPHORUS 2.9 MG/DL (2.3-4.5)
[2024-12-20] MEDS ORDERED: magnesium Cl slow-release 64mg tablet PO PRN (09:40)
[2024-12-20] MEDS ORDERED: magnesium sulf-water 4G/100mL 100 ML IV PRN (09:40)
[2024-12-20] MEDS ORDERED: magnesium sulf-water 2g/50mL 50 ML IV PRN (09:40)
[2024-12-20] MEDS ORDERED: potassium Cl 20 mEq SR tablet PO PRN ×2 (09:40)
[2024-12-20 11:00] VITALS: BP 142/71; PULSE 76; RESP 16; TEMP 98.6; O2SAT 96
[2024-12-20] MEDS: INSULIN LISPRO 100 UNIT/ML INSULN.PEN MULTI-DOSE SQ SCH (12:10)
[2024-12-20] MEDS: potassium Cl 40MEQ/1/2NS 520ml 520 ML IV PRN (13:12)
--- NOTE | 2024-12-20 14:04 | PROGRESS NOTE ---
Progress Note Dictate Providers to CC CC: SERENITY MERRITT MD ~ Progress Note: Subsequent surgical care on a 69-year-old gentleman who is postoperative day 3, status post aortobifemoral bypass Rounding for Dr. Darryn Ritchie today who is actively managing the patient from a vascular standpoint No acute surgical issues Perfusion restored and intact Continue aspirin Potassium being replaced by hospitalist service No acute surgical issues Regular diet okay Antibiotic Ordered?: Yes Objective Vitals Vital Signs Date Time Temp Pulse Resp B/P (MAP) Pulse Ox O2 Delivery O2 Flow Rate FiO2 12/20/24 13:00 14 12/20/24 11:00 98.6 76 142/71 (94) 96 Room Air 12/19/24 03:00 2.0 12/18/24 10:26 30 Lab Results: 12/20/24 0541 12/20/24 0541 Coagulation Studies Laboratory Tests Test 12/18/24 02:47 Prothrombin Time 11.3 SECONDS (9.0-12.0) INR International Normalized Ratio 1.1 INR Activated Partial Thromboplast Time 27 SECONDS (22-32) Coagulation Comments SERENITY MERRITT MD Dec 20, 2024 14:04
[2024-12-20 18:00] VITALS: BP 143/58; PULSE 95; RESP 14; TEMP 97.5; O2SAT 96
[2024-12-20] MEDS: K and/or MAG REPLACEMENT MC SCH (20:00)
--- NOTE | 2024-12-20 20:08 | PROGRESS NOTE ---
Daily Progress Note Providers to CC ~ Antibiotic Timeout Antibiotic Ordered?: Yes Subjective Patient is on potassium replacement protocol for hypokalemia. Patient wants diet to get advanced and Dr. Tao evaluated the patient patient currently on regular diet Objective Vital Signs Date Time Temp Pulse Resp B/P (MAP) Pulse Ox O2 Delivery O2 Flow Rate FiO2 12/20/24 17:00 14 12/20/24 15:00 Room Air 12/20/24 11:00 98.6 76 142/71 (94) 96 12/19/24 03:00 2.0 12/18/24 10:26 30 Result Diagram: 12/20/24 0541 12/20/24 0541 General-patient is chronically ill-appearing, not lethargic looks comfortable HEENT-atraumatic normocephalic, neck supple without elevated JVD, Eyes-no icterus or pallor seen in eyes Chest-decreased lung sounds to auscultation bilaterally, Heart-S1-S2 normal, regular heart rate no murmur Abdomen -bowel sounds diminished on auscultation, soft nondistended nontender no guarding, no rigidity. [place] present in over midline colostomy bag present. Ashley catheter in place . Bilateral surgical wound present in groin , dressing in place Skin -signs of chronic hyperpigmentation present over lower extremity Neurology-awake cooperated during physical exam Extremity- no pedal edema able to move all upper extremities. No pedal pulsations on palpation bilaterally Coagulation Studies Laboratory Tests Test 12/18/24 02:47 Prothrombin Time 11.3 SECONDS (9.0-12.0) INR International Normalized Ratio 1.1 INR Activated Partial Thromboplast Time 27 SECONDS (22-32) Coagulation Comments Problem\Assessment\Plan severe peripheral arterial disease Stage III pressure injury/arterial ulcer/ diabetic foot ulcer Follow up arterial Doppler Dr. Ritchie was consulted. Recommmended arterial doppler CT is down unable to get CTA as recommended by Dr. Carlson. Lexiscan negative. Further management per 12/17-Patient is waiting to go for aortobifemoral surgical procedure with Dr. Carlson today. He was transferred later today to CICU and was intubated. 12/18-status post aortobifemoral bypass, bilateral common femoral endarterectomy Urinary tract infection Chronic indwelling ashley Catheter from 11/18/2024 after surgery for Sigmoidal mass obstructing colon, eroding into the bladder No SIRS/sepsis UA is positive for esterase, WBC and bacteria Follow up on urine culture WBC, lactate, procalcitonin are normal IV Rocephin 1 gm daily 12/13/24-Dr. Van wants to continue Ashley catheter and ordered cystogram to ensure the bladder is healed. According to her if not completely healed then patient will have urine leak into the abdomen which may require repeat abdominal surgery. Ashley catheter replaced. Patient is able to ambulate 12/14/24-Patient was waiting to go to CTA today. Dr. Carlson following the patient. 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 No free leakage of bladder content into extraperitoneal pelvis. Focally thickened left bladder wall with polypoid appearance concerning for residual mass. NIDDM type 2 HbA1c is 8.0 on 11/12/24 Lantus 15 units HS daily Placed on hypoglycemia/hypoglycemia protocol Sigmoidal mass obstructing colon, eroding into the bladder s/p exploratory laparotomy with en bloc sigmoid colon resection with Dr. Ritchie and Dr. Myers on 11/13/2024 Patient has colostomy bag Parkinson's disease Essential tremor Advised outpatient management Code status: DNR DVT prophylaxis : SCDs Nutrition: carb Controlled diet Physical therapy: ordered Line/tube: PIV Analgesia/sedation: Morphine Patient's current condition is guarded we will continue to follow patient along with Dr. Ritchie/ Dr Tao and Dr. Van Date of Service: Dec 20, 2024 Billing Provider: JUWAN BERNAL MD Common Visit Codes: [id number] INP/OBS CARE(HIGH) JUWAN BERNAL MD Dec 20, 2024 20:08
[2024-12-20 22:00] VITALS: BP 153/74; PULSE 84; RESP 19; TEMP 98.2; O2SAT 97
[2024-12-21] VITALS (7 sets, daily range): BP systolic 114–143; BP diastolic 61–79; PULSE 73–86; RESP 11–17; TEMP 97–98.3; O2SAT 95–98
[2024-12-21 06:44] LABS: MEAN PLATELET VOLUME 6.6 FL (7.4-10.4); RED CELL DISTRIBUTION WIDTH 14.5 % (11.5-14.5)
[2024-12-21 07:13] LABS: CREATININE 0.37 MG/DL (0.60-1.10); PHOSPHORUS 3.2 MG/DL (2.3-4.5); TOTAL CARBON DIOXIDE 31.8 MMOL/L (24-32); eCRCL 188 ML/MIN; eGFR > 90 ML/MIN
--- NOTE | 2024-12-21 13:02 | PROGRESS NOTE ---
Progress Note ID Providers to CC ~ Progress Note Progress Note: pain improving/vss/LE well perfused a/p 1. s/p aortoibifem-doing well/pt LISA FRY MD Dec 21, 2024 13:02
[2024-12-21] MEDS: PCA WASTE DOCUMENTATION 1 MG ML MC SCH (15:38)
--- NOTE | 2024-12-21 21:00 | PROGRESS NOTE ---
Daily Progress Note Providers to CC ~ Antibiotic Timeout Antibiotic Ordered?: No Subjective Patient is seen in presence of nursing staff. Stools present in colostomy bag. Patient is on REVERSE ENGINEER pump for pain control followed by surgical team . Discharge plan as per Dr. Carlson . Objective Vital Signs Date Time Temp Pulse Resp B/P (MAP) Pulse Ox O2 Delivery O2 Flow Rate FiO2 12/21/24 19:00 12 12/21/24 15:00 97.1 84 132/78 (96) 97 Room Air 12/21/24 08:00 21 12/19/24 03:00 2.0 Result Diagram: 12/21/2428 12/21/2428 General-patient is chronically ill-appearing, not lethargic looks comfortable HEENT-atraumatic normocephalic, neck supple without elevated JVD, Eyes-no icterus or pallor seen in eyes Chest-decreased lung sounds to auscultation bilaterally, Heart-S1-S2 normal, regular heart rate no murmur Abdomen -bowel sounds diminished on auscultation, soft nondistended nontender no guarding, no rigidity. [place] present in over midline colostomy bag present. Ashley catheter in place . Bilateral surgical wound present in groin , dressing in place Skin -signs of chronic hyperpigmentation present over lower extremity Neurology-awake cooperated during physical exam Extremity- no pedal edema able to move all upper extremities. No pedal pulsations on palpation bilaterally Coagulation Studies Laboratory Tests Test 12/18/24 02:47 Prothrombin Time 11.3 SECONDS (9.0-12.0) INR International Normalized Ratio 1.1 INR Activated Partial Thromboplast Time 27 SECONDS (22-32) Coagulation Comments Problem\Assessment\Plan severe peripheral arterial disease Stage III pressure injury/arterial ulcer/ diabetic foot ulcer Follow up arterial Doppler Dr. Ritchie was consulted. Recommmended arterial doppler CT is down unable to get CTA as recommended by Dr. Carlson. Lexiscan negative. Further management per 12/17-Patient is waiting to go for aortobifemoral surgical procedure with Dr. Carlson today. He was transferred later today to CICU and was intubated. 12/18-status post aortobifemoral bypass, bilateral common femoral endarterectomy Urinary tract infection Chronic indwelling ashley Catheter from 11/18/2024 after surgery for Sigmoidal mass obstructing colon, eroding into the bladder No SIRS/sepsis UA is positive for esterase, WBC and bacteria Follow up on urine culture WBC, lactate, procalcitonin are normal IV Rocephin 1 gm daily 12/13/24-Dr. Van wants to continue Ashley catheter and ordered cystogram to ensure the bladder is healed. According to her if not completely healed then patient will have urine leak into the abdomen which may require repeat abdominal surgery. Ashley catheter replaced. Patient is able to ambulate 12/14/24-Patient was waiting to go to CTA today. Dr. Carlson following the patient. 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 No free leakage of bladder content into extraperitoneal pelvis. Focally thickened left bladder wall with polypoid appearance concerning for residual mass. NIDDM type 2 HbA1c is 8.0 on 11/12/24 Lantus 15 units HS daily Placed on hypoglycemia/hypoglycemia protocol Sigmoidal mass obstructing colon, eroding into the bladder s/p exploratory laparotomy with en bloc sigmoid colon resection with Dr. Ritchie and Dr. Myers on 11/13/2024 Patient has colostomy bag Parkinson's disease Essential tremor Advised outpatient management Code status: DNR DVT prophylaxis : SCDs Nutrition: carb Controlled diet Physical therapy: ordered Line/tube: PIV Analgesia/sedation: Morphine Patient's current condition is guarded we will continue to follow patient along with Dr. Ritchie/ Dr Tao and Dr. Van Date of Service: Dec 21, 2024 Billing Provider: JUWAN BERNAL MD Common Visit Codes: [id number] INP/OBS CARE(HIGH) JUWAN BERNAL MD Dec 21, 2024 21:00
[2024-12-22] VITALS (7 sets, daily range): BP systolic 108–146; BP diastolic 65–80; PULSE 76–87; RESP 11–16; TEMP 97–98.7; O2SAT 94–97
[2024-12-22] MEDS: JUVEN Smoothie Arginine/Glut./Ca2+Bmb (Juven 19.3pkt) 240ml cup PO SCH (07:30)
--- NOTE | 2024-12-22 20:17 | PROGRESS NOTE ---
Progress Note ID Providers to CC ~ Progress Note Progress Note: doing well/cont supportive care LISA FRY MD Dec 22, 2024 20:17
--- NOTE | 2024-12-22 21:06 | PROGRESS NOTE ---
Daily Progress Note Providers to CC ~ Antibiotic Timeout Antibiotic Ordered?: No Subjective [place] following the patient, physical therapy team recommended rehab for him Objective Vital Signs Date Time Temp Pulse Resp B/P (MAP) Pulse Ox O2 Delivery O2 Flow Rate FiO2 12/22/24 19:00 18 12/22/24 15:00 98.3 85 146/80 (102) 96 Room Air 12/21/24 20:00 21 12/19/24 03:00 2.0 Result Diagram: 12/21/2452712/21/24527 General-patient is chronically ill-appearing, not lethargic looks comfortable HEENT-atraumatic normocephalic, neck supple without elevated JVD, Eyes-no icterus or pallor seen in eyes Chest-decreased lung sounds to auscultation bilaterally, Heart-S1-S2 normal, regular heart rate no murmur Abdomen -bowel sounds diminished on auscultation, soft nondistended nontender no guarding, no rigidity. [place] present in over midline colostomy bag present. Ashley catheter in place . Bilateral surgical wound present in groin , dressing in place Skin -signs of chronic hyperpigmentation present over lower extremity Neurology-awake cooperated during physical exam Extremity- no pedal edema able to move all upper extremities. No pedal pulsations on palpation bilaterally Coagulation Studies Laboratory Tests Test 12/18/24 02:47 Prothrombin Time 11.3 SECONDS (9.0-12.0) INR International Normalized Ratio 1.1 INR Activated Partial Thromboplast Time 27 SECONDS (22-32) Coagulation Comments Problem\Assessment\Plan severe peripheral arterial disease Stage III pressure injury/arterial ulcer/ diabetic foot ulcer Follow up arterial Doppler Dr. Ritchie was consulted. Recommmended arterial doppler CT is down unable to get CTA as recommended by Dr. Carlson. Lexiscan negative. Further management per 12/17-Patient is waiting to go for aortobifemoral surgical procedure with Dr. Carlson today. He was transferred later today to CICU and was intubated. 12/18-status post aortobifemoral bypass, bilateral common femoral endarterectomy Urinary tract infection Chronic indwelling ashley Catheter from 11/18/2024 after surgery for Sigmoidal mass obstructing colon, eroding into the bladder No SIRS/sepsis UA is positive for esterase, WBC and bacteria Follow up on urine culture WBC, lactate, procalcitonin are normal IV Rocephin 1 gm daily 12/13/24-Dr. Van wants to continue Ashley catheter and ordered cystogram to ensure the bladder is healed. According to her if not completely healed then patient will have urine leak into the abdomen which may require repeat abdominal surgery. Ashley catheter replaced. Patient is able to ambulate 12/14/24-Patient was waiting to go to CTA today. Dr. Carlson following the patient. 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 No free leakage of bladder content into extraperitoneal pelvis. Focally thickened left bladder wall with polypoid appearance concerning for residual mass. NIDDM type 2 HbA1c is 8.0 on 11/12/24 Lantus 15 units HS daily Placed on hypoglycemia/hypoglycemia protocol Sigmoidal mass obstructing colon, eroding into the bladder s/p exploratory laparotomy with en bloc sigmoid colon resection with Dr. Ritchie and Dr. Myers on 11/13/2024 Patient has colostomy bag Parkinson's disease Essential tremor Advised outpatient management Code status: DNR DVT prophylaxis : SCDs Nutrition: carb Controlled diet Physical therapy: ordered Line/tube: PIV Analgesia/sedation: Morphine Patient's current condition is guarded we will continue to follow patient along with Dr. Ritchie/ Dr Tao and Dr. Van Date of Service: Dec 22, 2024 Billing Provider: JUWAN BERNAL MD Common Visit Codes: [id number] INP/OBS CARE(HIGH) JUWAN BERNAL MD Dec 22, 2024 21:06
[2024-12-23] VITALS (7 sets, daily range): BP systolic 128–149; BP diastolic 68–82; PULSE 67–87; RESP 13–16; TEMP 97.7–98.1; O2SAT 92–97
[2024-12-23 06:56] LABS: MEAN PLATELET VOLUME 6.5 FL (7.4-10.4); RED CELL DISTRIBUTION WIDTH 14.2 % (11.5-14.5)
[2024-12-23 07:16] LABS: CREATININE 0.42 MG/DL (0.60-1.10); TOTAL CARBON DIOXIDE 30.3 MMOL/L (24-32); eCRCL 165 ML/MIN; eGFR > 90 ML/MIN
--- NOTE | 2024-12-23 16:37 | PROGRESS NOTE ---
Progress Note ID Providers to CC ~ Progress Note Progress Note: NO COMPLAINTS/VSS/LE WELL PERFUSED/LABS NOTED A/P 1. S/P AORTOBIFEM-DOING WELL/CONT PT LISA FRY MD Dec 23, 2024 16:37
[2024-12-23] MEDS ORDERED: HYDROmorphone inj. 0.5 MG/0.5 ML DISP.SYRIN IV PRN (16:40)
--- NOTE | 2024-12-23 20:32 | PROGRESS NOTE ---
Daily Progress Note Providers to CC ~ Antibiotic Timeout Antibiotic Ordered?: No Subjective Further discharge plan as per Dr. Carlson . patient looks comfortable he do not want to go to rehab and wants to go home. Objective Vital Signs Date Time Temp Pulse Resp B/P (MAP) Pulse Ox O2 Delivery O2 Flow Rate FiO2 12/23/24 15:00 18 12/23/24 15:00 98.1 82 128/71 (90) 96 Room Air 12/21/24 20:00 21 Result Diagram: 12/23/24 0620 12/23/24 0620 General-patient is chronically ill-appearing, not lethargic looks comfortable HEENT-atraumatic normocephalic, neck supple without elevated JVD, Eyes-no icterus or pallor seen in eyes Chest-decreased lung sounds to auscultation bilaterally, Heart-S1-S2 normal, regular heart rate no murmur Abdomen -bowel sounds diminished on auscultation, soft nondistended nontender no guarding, no rigidity. [place] present in over midline colostomy bag present. Ashley catheter in place . Bilateral surgical wound present in groin , dressing in place Skin -signs of chronic hyperpigmentation present over lower extremity Neurology-awake cooperated during physical exam Extremity- no pedal edema able to move all upper extremities. No pedal pulsations on palpation bilaterally Coagulation Studies Laboratory Tests Test 12/18/24 02:47 Prothrombin Time 11.3 SECONDS (9.0-12.0) INR International Normalized Ratio 1.1 INR Activated Partial Thromboplast Time 27 SECONDS (22-32) Coagulation Comments Problem\Assessment\Plan severe peripheral arterial disease Stage III pressure injury/arterial ulcer/ diabetic foot ulcer Follow up arterial Doppler Dr. Ritchie was consulted. Recommmended arterial doppler CT is down unable to get CTA as recommended by Dr. Carlson. Lexiscan negative. Further management per 12/17-Patient is waiting to go for aortobifemoral surgical procedure with Dr. Carlson today. He was transferred later today to CICU and was intubated. 12/18-status post aortobifemoral bypass, bilateral common femoral endarterectomy Urinary tract infection Chronic indwelling ashley Catheter from 11/18/2024 after surgery for Sigmoidal mass obstructing colon, eroding into the bladder No SIRS/sepsis UA is positive for esterase, WBC and bacteria Follow up on urine culture WBC, lactate, procalcitonin are normal IV Rocephin 1 gm daily 12/13/24-Dr. Van wants to continue Ashley catheter and ordered cystogram to ensure the bladder is healed. According to her if not completely healed then patient will have urine leak into the abdomen which may require repeat abdominal surgery. Ashley catheter replaced. Patient is able to ambulate 12/14/24-Patient was waiting to go to CTA today. Dr. Carlson following the patient. 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 No free leakage of bladder content into extraperitoneal pelvis. Focally thickened left bladder wall with polypoid appearance concerning for residual mass. NIDDM type 2 HbA1c is 8.0 on 11/12/24 Lantus 15 units HS daily Placed on hypoglycemia/hypoglycemia protocol Sigmoidal mass obstructing colon, eroding into the bladder s/p exploratory laparotomy with en bloc sigmoid colon resection with Dr. Ritchie and Dr. Myers on 11/13/2024 Patient has colostomy bag Parkinson's disease Essential tremor Advised outpatient management Code status: DNR DVT prophylaxis : SCDs Nutrition: carb Controlled diet Physical therapy: ordered Line/tube: PIV Analgesia/sedation: Morphine Patient's current condition is guarded we will continue to follow patient along with Dr. Ritchie/ Dr Tao and Dr. Van Date of Service: Dec 23, 2024 Billing Provider: JUWAN BERNAL MD Common Visit Codes: [id number] INP/OBS CARE(HIGH) JUWAN BERNAL MD Dec 23, 2024 20:32
[2024-12-23] MEDS: INSULIN LISPRO 100 UNIT/ML INSULN.PEN MULTI-DOSE SQ SCH (23:11)
[2024-12-24 06:00] VITALS: BP 142/75; PULSE 85; RESP 14; TEMP 97.4; O2SAT 95
[2024-12-24 11:00] VITALS: BP 128/69; PULSE 74; RESP 14; TEMP 97.2; O2SAT 97
[2024-12-24 15:00] VITALS: BP 164/83; PULSE 85; RESP 15; TEMP 98.2; O2SAT 95
--- NOTE | 2024-12-24 16:15 | PROGRESS NOTE ---
Progress Note ID Providers to CC ~ Progress Note Progress Note: doing well/anticipate dc 1-2 days LISA FRY MD Dec 24, 2024 16:15
[2024-12-24 18:00] VITALS: BP 137/85; PULSE 81; RESP 19; TEMP 98.5; O2SAT 97
[2024-12-24 19:45] VITALS: RESP 18; O2SAT 96
--- NOTE | 2024-12-24 20:42 | PROGRESS NOTE ---
Daily Progress Note Providers to CC ~ Antibiotic Timeout Antibiotic Ordered?: No Subjective Further discharge plan as per Dr. Calrson . patient looks comfortable he do not want to go to rehab and wants to go home. Objective Vital Signs Date Time Temp Pulse Resp B/P (MAP) Pulse Ox O2 Delivery O2 Flow Rate FiO2 12/24/24 19:45 18 96 Room Air 12/24/24 15:00 98.2 85 164/83 (110) 12/21/24 20:00 21 Result Diagram: 12/23/24 0620 12/23/24 0620 General-patient is chronically ill-appearing, not lethargic looks comfortable HEENT-atraumatic normocephalic, neck supple without elevated JVD, Eyes-no icterus or pallor seen in eyes Chest-decreased lung sounds to auscultation bilaterally, Heart-S1-S2 normal, regular heart rate no murmur Abdomen -bowel sounds diminished on auscultation, soft nondistended nontender no guarding, no rigidity. [place] present in over midline colostomy bag present. Ashley catheter in place . Bilateral surgical wound present in groin , dressing in place Skin -signs of chronic hyperpigmentation present over lower extremity Neurology-awake cooperated during physical exam Extremity- no pedal edema able to move all upper extremities. No pedal pulsations on palpation bilaterally Coagulation Studies Laboratory Tests Test 12/18/24 02:47 Prothrombin Time 11.3 SECONDS (9.0-12.0) INR International Normalized Ratio 1.1 INR Activated Partial Thromboplast Time 27 SECONDS (22-32) Coagulation Comments Problem\Assessment\Plan severe peripheral arterial disease Stage III pressure injury/arterial ulcer/ diabetic foot ulcer Follow up arterial Doppler Dr. Ritchie was consulted. Recommmended arterial doppler CT is down unable to get CTA as recommended by Dr. Carlson. Lexiscan negative. Further management per 12/17-Patient is waiting to go for aortobifemoral surgical procedure with Dr. Carlson today. He was transferred later today to CICU and was intubated. 12/18-status post aortobifemoral bypass, bilateral common femoral endarterectomy Urinary tract infection Chronic indwelling ashley Catheter from 11/18/2024 after surgery for Sigmoidal mass obstructing colon, eroding into the bladder No SIRS/sepsis UA is positive for esterase, WBC and bacteria Follow up on urine culture WBC, lactate, procalcitonin are normal IV Rocephin 1 gm daily 12/13/24-Dr. Van wants to continue Ashley catheter and ordered cystogram to ensure the bladder is healed. According to her if not completely healed then patient will have urine leak into the abdomen which may require repeat abdominal surgery. Ashley catheter replaced. Patient is able to ambulate 12/14/24-Patient was waiting to go to CTA today. Dr. Carlson following the patient. 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 No free leakage of bladder content into extraperitoneal pelvis. Focally thickened left bladder wall with polypoid appearance concerning for residual mass. NIDDM type 2 HbA1c is 8.0 on 11/12/24 Lantus 15 units HS daily Placed on hypoglycemia/hypoglycemia protocol Sigmoidal mass obstructing colon, eroding into the bladder s/p exploratory laparotomy with en bloc sigmoid colon resection with Dr. Ritchie and Dr. Myers on 11/13/2024 Patient has colostomy bag Parkinson's disease Essential tremor Advised outpatient management Code status: DNR DVT prophylaxis : SCDs Nutrition: carb Controlled diet Physical therapy: ordered Line/tube: PIV Analgesia/sedation: Morphine Patient's current condition is guarded we will continue to follow patient along with Dr. Ritchie/ Dr Tao and Dr. Van Date of Service: Dec 24, 2024 Billing Provider: JUWAN BERNAL MD Common Visit Codes: [id number] INP/OBS CARE(HIGH) JUWAN BERNAL MD Dec 24, 2024 20:42
[2024-12-24 22:00] VITALS: BP 144/74; PULSE 80; RESP 18; TEMP 97; O2SAT 97
[2024-12-25 02:00] VITALS: BP 136/77; PULSE 97; RESP 16; TEMP 97; O2SAT 96
[2024-12-25 07:51] LABS: MEAN PLATELET VOLUME 6.2 FL (7.4-10.4); RED CELL DISTRIBUTION WIDTH 14.5 % (11.5-14.5)
[2024-12-25 08:00] VITALS: RESP 14; O2SAT 97
[2024-12-25 08:14] LABS: CREATININE 0.48 MG/DL (0.60-1.10); TOTAL CARBON DIOXIDE 30.4 MMOL/L (24-32); eCRCL 145 ML/MIN; eGFR > 90 ML/MIN
--- NOTE | 2024-12-25 14:09 | PROGRESS NOTE ---
Progress Note ID Providers to CC ~ Progress Note Progress Note: doing well/home in am LISA FRY MD Dec 25, 2024 14:09
[2024-12-25 18:00] VITALS: BP 157/77; PULSE 78; RESP 20; TEMP 97.1; O2SAT 96
--- NOTE | 2024-12-25 19:42 | PROGRESS NOTE ---
Daily Progress Note Providers to CC ~ Antibiotic Timeout Antibiotic Ordered?: No Subjective Patient was seen in his room. [place] chewing tobacco was right next to his bed and he mentioned to me that Dr. Ritchie allowed him to chew tobacco. We will be discharged tomorrow. Further management of pain medication and refills as per Dr. Ritchie Objective Vital Signs Date Time Temp Pulse Resp B/P (MAP) Pulse Ox O2 Delivery O2 Flow Rate FiO2 12/25/24 08:00 14 97 Room Air 12/25/24 06:30 71 12/25/24 02:00 97.0 136/77 (96) 12/21/24 20:00 21 Result Diagram: 12/25/24 0714 12/25/2414 General-patient is chronically ill-appearing, not lethargic looks comfortable HEENT-atraumatic normocephalic, neck supple without elevated JVD, Eyes-no icterus or pallor seen in eyes Chest-decreased lung sounds to auscultation bilaterally, Heart-S1-S2 normal, regular heart rate no murmur Abdomen -bowel sounds diminished on auscultation, soft nondistended nontender no guarding, no rigidity. [place] present in over midline colostomy bag present. Ashley catheter in place . Bilateral surgical wound present in groin , dressing in place Skin -signs of chronic hyperpigmentation present over lower extremity Neurology-awake cooperated during physical exam Extremity- no pedal edema able to move all upper extremities. No pedal pulsations on palpation bilaterally Coagulation Studies Laboratory Tests Test 12/18/24 02:47 Prothrombin Time 11.3 SECONDS (9.0-12.0) INR International Normalized Ratio 1.1 INR Activated Partial Thromboplast Time 27 SECONDS (22-32) Coagulation Comments Problem\Assessment\Plan severe peripheral arterial disease Stage III pressure injury/arterial ulcer/ diabetic foot ulcer Follow up arterial Doppler Dr. Ritchie was consulted. Recommmended arterial doppler CT is down unable to get CTA as recommended by Dr. Carlson. Lexiscan negative. Further management per 12/17-Patient is waiting to go for aortobifemoral surgical procedure with Dr. Carlson today. He was transferred later today to CICU and was intubated. 12/18-status post aortobifemoral bypass, bilateral common femoral endarterectomy Urinary tract infection Chronic indwelling ashley Catheter from 11/18/2024 after surgery for Sigmoidal mass obstructing colon, eroding into the bladder No SIRS/sepsis UA is positive for esterase, WBC and bacteria Follow up on urine culture WBC, lactate, procalcitonin are normal IV Rocephin 1 gm daily 12/13/24-Dr. Van wants to continue Ashley catheter and ordered cystogram to ensure the bladder is healed. According to her if not completely healed then patient will have urine leak into the abdomen which may require repeat abdominal surgery. Ashley catheter replaced. Patient is able to ambulate 12/14/24-Patient was waiting to go to CTA today. Dr. Carlson following the patient. 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 No free leakage of bladder content into extraperitoneal pelvis. Focally thickened left bladder wall with polypoid appearance concerning for residual mass. NIDDM type 2 HbA1c is 8.0 on 11/12/24 Lantus 15 units HS daily Placed on hypoglycemia/hypoglycemia protocol Sigmoidal mass obstructing colon, eroding into the bladder s/p exploratory laparotomy with en bloc sigmoid colon resection with Dr. Ritchie and Dr. Myers on 11/13/2024 Patient has colostomy bag Parkinson's disease Essential tremor Advised outpatient management Code status: DNR DVT prophylaxis : SCDs Nutrition: carb Controlled diet Physical therapy: ordered Line/tube: PIV Analgesia/sedation: Morphine Patient's current condition is guarded we will continue to follow patient along with Dr. Ritchie. [place] chewing tobacco was right next to his bed and he mentioned to me that Dr. Ritchie allowed him to chew tobacco. We will be discharged tomorrow. Further management of pain medication and refills as per Dr. Ritchie Date of Service: Dec 25, 2024 Billing Provider: JUWAN BERNAL MD Common Visit Codes: [id number] INP/OBS CARE(HIGH) JUWAN BERNAL MD Dec 25, 2024 19:42
[2024-12-25 20:00] VITALS: RESP 16; O2SAT 96
[2024-12-25 22:00] VITALS: BP 158/89; PULSE 78; RESP 18; TEMP 97.4; O2SAT 99
[2024-12-26 02:00] VITALS: BP 132/63; PULSE 74; RESP 15; TEMP 97.4; O2SAT 95
[2024-12-26 06:00] VITALS: BP 143/81; PULSE 83; RESP 20; TEMP 97.8; O2SAT 99
[2024-12-26 08:00] VITALS: RESP 13; O2SAT 97
[2024-12-26] MEDS ORDERED: ASPI-1071 PO (09:43)
[2024-12-26 11:00] VITALS: BP 135/75; PULSE 76; RESP 15; TEMP 98.3; O2SAT 99
--- NOTE | 2024-12-26 19:05 | DISCHARGE SUMMARY ---
Discharge Summary Providers to CC ~ Discharge Summary Admission Diagnosis: PAD Hospital Course DATE OF ADMISSION: December 11, 2024 DATE OF DISCHARGE: March 28, 2024 CBC testing done on December 25, 2024 WBC 7.2 hemoglobin 10.5 hematocrit 31.3 sed rate 23 platelet count 433. Procalcitonin 0.05, hemoglobin A1c 6.9. Respiratory culture showed no growth after two days. Blood culture showed no growth after five days urine culture showed no growth after two days. Patient had multiple x-ray chest, vascular ultrasound, aorta with runoff CTA, Lexiscan, abdomen and pelvis CT, vascular ultrasound and arterial ultrasound done during hospitalization please see the details of actual results in electronic medical records. Discharge Diagnosis\Comment: severe peripheral arterial disease Stage III pressure injury/arterial ulcer/ diabetic foot ulcer Urinary tract infection Chronic indwelling ashley Catheter from 11/18/2024 after surgery for Sigmoidal mass obstructing colon, eroding into the bladder No SIRS/sepsis NIDDM type 2 Sigmoidal mass obstructing colon, eroding into the bladder s/p exploratory laparotomy with en bloc sigmoid colon resection Parkinson's disease Essential tremor use chewing tobacco Operations\Procedures: status post aortobifemoral bypass, bilateral common femoral endarterectomy Consultants: Dr. Aldo Van Complications: None Condition on DC: Stable New Medications: Aspirin (Ecotrin*) 81 Mg Tablet.dr 1 TAB PO DAILY for 30 Days, #30 TAB.SR Continued Medications: Azelastine HCl (Azelastine HCl) 0.05 % Drops 1 DROP EACHEYE BID Metformin HCl (Metformin HCl) 1,000 Mg Tablet 1 TAB PO BID Oxycodone HCl/Acetaminophen (Percocet 5-325 mg Tablet) 5 Mg-325 Mg Tablet 0.5 TAB PO Q4H PRN for pain for 5 Days, #10 TAB 0 Refills Discharge Summary: severe peripheral arterial disease Stage III pressure injury/arterial ulcer/ diabetic foot ulcer Follow up arterial Doppler Dr. Ritchie was consulted. Recommmended arterial doppler CT is down unable to get CTA as recommended by Dr. Carlson. Lexiscan negative. Further management per 12/17-Patient is waiting to go for aortobifemoral surgical procedure with Dr. Carlson today. He was transferred later to CICU and was intubated. 12/18-status post aortobifemoral bypass, bilateral common femoral endarterectomy Patient was extubated and transferred to PCU , on [employer] pain pump ordered by Dr. Ritchie . he followed the patient during hospitalization. Urinary tract infection Chronic indwelling ashley Catheter from 11/18/2024 after surgery for Sigmoidal mass obstructing colon, eroding into the bladder No SIRS/sepsis UA is positive for esterase, WBC and bacteria Follow up on urine culture WBC, lactate, procalcitonin are normal IV Rocephin 1 gm daily 12/13/24-Dr. Van wants to continue Ashley catheter and ordered cystogram to ensure the bladder is healed. According to her if not completely healed then patient will have urine leak into the abdomen which may require repeat abdominal surgery. Ashley catheter replaced. Patient is able to ambulate 12/14/24-Patient was waiting to go to CTA today. Dr. Carlson following the patient. 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 No free leakage of bladder content into extraperitoneal pelvis. Focally thickened left bladder wall with polypoid appearance concerning for residual mass. NIDDM type 2 HbA1c is 8.0 on 11/12/24 Lantus 15 units HS daily Placed on hypoglycemia/hypoglycemia protocol Sigmoidal mass obstructing colon, eroding into the bladder s/p exploratory laparotomy with en bloc sigmoid colon resection with Dr. Ritchie and Dr. Myers on 11/13/2024 Patient has colostomy bag Parkinson's disease Essential tremor Advised outpatient management Code status: DNR DVT prophylaxis : SCDs Nutrition: carb Controlled diet Physical therapy: ordered Line/tube: PIV Analgesia/sedation: Morphine he has been afebrile and getting discharged home in stable condition. PATIENT REFUSED FOR REHAB DISCHARGE OPTIONS. Patient is seen and examined on the day of discharge. All labs, diagnostic workup and discharge plan discussed with patient in detail before his discharge. All questions and queries answered to the best of my professional medical knowledge. I heard patient's concerns and address appropriately. Patient was cleared by Physical therapy team for home discharge. manager rfid Triny involved in patient's discharge plan. Discharge instructions provided to the patientPatient needs follow-up with Dr. Carlson in outpatient setting. Please provide fall precautions document to him activity as tolerated. Patient was advised to stop smoking Evans chewing tobacco was right next to his bed and he mentioned to me that Dr. Ritchie allowed him to chew tobacco. Further surgical instructions, management of pain medication and refills as per Dr. Ritchie General-patient is chronically ill-appearing, not lethargic looks comfortable HEENT-atraumatic normocephalic, neck supple without elevated JVD, Eyes-no icterus or pallor seen in eyes Chest-decreased lung sounds to auscultation bilaterally, Heart-S1-S2 normal, regular heart rate no murmur Abdomen -bowel sounds diminished on auscultation, soft nondistended nontender no guarding, no rigidity. [place] present in over midline colostomy bag present. Ashley catheter in place . Bilateral surgical wound present in groin , dressing in place Skin -signs of chronic hyperpigmentation present over lower extremity Neurology-awake cooperated during physical exam Extremity- no pedal edema able to move all upper extremities. No pedal pulsations on palpation bilaterally *Problems/Diagnosis: (1) History of bladder repair surgery Status: Chronic Total Time Spent on D/C: > 30 Minutes Date of Service: Dec 26, 2024 Billing Provider: JUWAN BERNAL MD Common Visit Codes: 96844-WRK/OBS DISCH DAY >30min JUWAN BERNAL MD Dec 26, 2024 18:58
== END 2024-12-26 16:20 | disposition home health service (06) | DRG 270 ==
LOC: ER 14:55 → ED HOLD 19:38 → UNDOADMIN 19:38 → ED HOLD 20:28 → SUR 3N 22:35 → CICU 2S 12-17 18:08 → PCU 3S 12-19 17:28
PROVIDERS: ADMIT Internal Medicine; ATTEND Internal Medicine
PROC: 0T2BX0Z Change Drainage Device in Bladder, External Approach (ICD-10-PCS; 2024-12-13)
PROC: BW211ZZ Computerized Tomography (CT Scan) of Abdomen and Pelvis using Low Osmolar Contrast (ICD-10-PCS; 2024-12-13)
PROC: BT101ZZ Fluoroscopy of Bladder using Low Osmolar Contrast (ICD-10-PCS; 2024-12-13)
PROC: 4A02XM4 Measurement of Cardiac Total Activity, External Approach (ICD-10-PCS; 2024-12-15)
PROC: B4201ZZ Computerized Tomography (CT Scan) of Abdominal Aorta using Low Osmolar Contrast (ICD-10-PCS; 2024-12-16)
PROC: B4241ZZ Computerized Tomography (CT Scan) of Superior Mesenteric Artery using Low Osmolar Contrast (ICD-10-PCS; 2024-12-16)
PROC: B4281ZZ Computerized Tomography (CT Scan) of Bilateral Renal Arteries using Low Osmolar Contrast (ICD-10-PCS; 2024-12-16)
PROC: B42C1ZZ Computerized Tomography (CT Scan) of Pelvic Arteries using Low Osmolar Contrast (ICD-10-PCS; 2024-12-16)
PROC: B42H1ZZ Computerized Tomography (CT Scan) of Bilateral Lower Extremity Arteries using Low Osmolar Contrast (ICD-10-PCS; 2024-12-16)
PROC: B4211ZZ Computerized Tomography (CT Scan) of Celiac Artery using Low Osmolar Contrast (ICD-10-PCS; 2024-12-16)
PROC: B42H1ZZ Computerized Tomography (CT Scan) of Bilateral Lower Extremity Arteries using Low Osmolar Contrast (ICD-10-PCS; 2024-12-16)
PROC: 04CL0ZZ Extirpation of Matter from Left Femoral Artery, Open Approach (ICD-10-PCS; 2024-12-17)
PROC: 04CK0ZZ Extirpation of Matter from Right Femoral Artery, Open Approach (ICD-10-PCS; 2024-12-17)
PROC: 03HY32Z Insertion of Monitoring Device into Upper Artery, Percutaneous Approach (ICD-10-PCS; 2024-12-17)
PROC: 02HV33Z Insertion of Infusion Device into Superior Vena Cava, Percutaneous Approach (ICD-10-PCS; 2024-12-17)
PROC: B548ZZA Ultrasonography of Superior Vena Cava, Guidance (ICD-10-PCS; 2024-12-17)
PROC: 04100JK Bypass Abdominal Aorta to Bilateral Femoral Arteries with Synthetic Substitute, Open Approach (ICD-10-PCS; principal; 2024-12-17 13:16)
DX: E11.51 Type 2 diabetes mellitus with diabetic peripheral angiopathy without gangrene (principal); L89.893 Pressure ulcer of other site, stage 3; Z66 Do not resuscitate; G20.A1 Parkinson's disease without dyskinesia, without mention of fluctuations; T83.511A Infection and inflammatory reaction due to indwelling urethral catheter, initial encounter; N39.0 Urinary tract infection, site not specified; F32.A Depression, unspecified; I70.0 Atherosclerosis of aorta; E11.621 Type 2 diabetes mellitus with foot ulcer; L97.518 Non-pressure chronic ulcer of other part of right foot with other specified severity; F17.210 Nicotine dependence, cigarettes, uncomplicated; G25.0 Essential tremor; E87.6 Hypokalemia; F41.9 Anxiety disorder, unspecified; K66.0 Peritoneal adhesions (postprocedural) (postinfection); Y84.6 Urinary catheterization as the cause of abnormal reaction of the patient, or of later complication, without mention of misadventure at the time of the procedure; Z79.84 Long term (current) use of oral hypoglycemic drugs; Z79.899 Other long term (current) drug therapy; Z90.49 Acquired absence of other specified parts of digestive tract; Z71.6 Tobacco abuse counseling; Z85.038 Personal history of other malignant neoplasm of large intestine; Z79.82 Long term (current) use of aspirin; Z79.4 Long term (current) use of insulin; Z93.3 Colostomy status; Y92.89 Other specified places as the place of occurrence of the external cause
CPT/HCPCS: 36415; 36600; 71045; 74178; 75635; 78452; 80048; 80053; 81001; 82803; 82948; 83036; 83605; 83735; 83880; 84100; 84145; 84484; 85018; 85025; 85610; 85651; 85730; 86140; 86885; 86900; 86901; 86920; 87040; 87070; 87075; 87081; 87088; 88300; 88304; 93005; 93017; 93922; 93925; 94002; 94003; 94760; 96374; 96375; 96376; 97110; 97116; 97161; 97530; 99285; A4314; A4358; A4421; A4615; A4618; A4649; A5200; A6212; A6213; A6222; A6250; A6258; A6260; A6402; A6449; A9500; C1768; G0378; J0694; J0696; J1100; J1171; J1644; J1815; J2003; J2250; J2270; J2405; J2704; J2720; J2765; J2785; J3010; J3480; J3490; J7030; J7040; J7120; P9045; Q9967

== ENCOUNTER 2025-01-19 08:06 | Outpatient (CLI) | payer MEDICARE, MEDICAID ==
[~2025-01-19 08:06] MED LIST changes: +ASPI-1071 PO; -CEFD300C17 PO; -DOCU-391 PO; +OXYC-145 PO; -PHEN-887 PO; -SULF1TAB45 PO; -tamsulosin
--- NOTE | 2025-01-19 11:32 | VASCULAR REPORT ---
[facility] Vascular Department [facility] [address] [place] [address] [email or web address] LAC LOREE HENAO Name : KAREN JOLLEY Date : 01/19/2025 TESTING Accession# : [id number] Birthdate : 1955 Sex : M Age : 69Y Security Test Engineer : Andres Chen BS, RVT Referring Dr. : LISA FRY, Preliminary Report The above named patient was referred for a PHYSIOLOGIC ARTERIAL DOPPLER EVALUATION. The evaluation includes blood pressures, ankle brachial indices (MINGO), and segmental Doppler waveform analysis at rest and post exercise when applicable. Toe brachial indices (TBI) taken when necessary. Patient OUT-PATIENT Enaation: Ankle to Brachial Index IndYeations Eval s/p aortobifem bypass graft and bilateral common femoral artery endarterectomy Risk Factors History of PAD: Bilaterally Surgery/Intervention Bypass Graft 1 : Date : 12/17/2024 Site : Aorto bifem Pressures/Indices Right MINGO Left AB Brachial 120mmHg Brachial Ankle(PT) 82mmHg 0.6 Ankle(PT) 92mmHg 0.77 Ankle(DP) 70mmHg Ankle(DP) OmmHg Impression: Right Ankle Brachial index: 0.68 Left Ankle Brachial Index: 0.77 Suggesting moderate arterial disease at rest bilaterally.
--- NOTE | 2025-01-19 11:40 | VASCULAR REPORT ---
CLINICAL HISTORY: Status post aortobifemoral bypass graft placement. Bilateral common femoral endarterectomy. TECHNIQUE: Bilateral lower extremity arterial duplex exam was performed. Grayscale, color Doppler, and spectral waveform analysis was performed. COMPARISON: VASC VL ARTERIAL on DOS: 12/12/24 FINDINGS: Right Lower Extremity: The distal anastomosis of the right limb of the aortobifemoral bypass graft is patent with peak systolic velocity measuring up to 153 cm/sec. More proximally in the distal right limb of the bypass graft, peak systolic velocity measures 121 cm/sec with multiphasic waveforms. There is moderate stenosis in the right profunda with elevated peak systolic velocity as described below. There is flow visualized in the right proximal SFA, with occlusion at the mid and distal SFA. The right popliteal artery appears patent throughout, new compared to the prior exam, with flow demonstrated in the popliteal, anterior tibial, posterior tibial, and peroneal arteries. There are multiphasic, somewhat turbulent waveforms in the profunda. Otherwise monophasic waveforms throughout the rest of the right lower extremity. Left Lower Extremity: The left limb and anastomosis of the aortobifemoral bypass graft are patent, with monophasic waveforms. Peak systolic velocity at the anastomosis measures 128 cm/sec. Peak systolic velocity more proximally in the distal left limb of the bypass graft measures 113 cm/sec. The left SFA is completely occluded throughout its course. The popliteal artery, posterior tibial artery, and peroneal artery are patent. The anterior tibial artery is occluded. There are abnormal monophasic waveforms throughout the left lower extremity. Prominent lymph node in the right inguinal region measuring up to 3.2 x 1.2 cm with reniform shape and echogenic hilum, possibly reactive. EXAMINATION DATA: RIGHT PSV (cm/sec) Profunda 267 SFA Prox 46 SFA Mid occluded SFA Dist occluded POP A 61 FLOOR SPACE ALLOCATOR 27 PER 9 ISAK 50 LEFT PSV (cm/sec) Profunda 110 SFA Prox occluded SFA Mid occluded SFA Dist occluded POP A 72 FLOOR SPACE ALLOCATOR 48 PER 6 ISAK occluded IMPRESSION: 1. Patent distal anastomoses of the right and left limbs of the aortobifemoral bypass graft. 2. 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 Also seen in the prior exam. 3. Moderate stenosis at the right profunda. 4. Right popliteal artery is patent, previously occluded on the prior exam. 5. Prominent right inguinal lymph node, possibly reactive. Correlate with clinical findings. 6. Additional findings as described above.
== END 2025-01-19 23:59 | disposition home or self-care (01) ==
LOC: VAS 08:06
PROVIDERS: ATTEND Surgery
DX: I70.213 Atherosclerosis of native arteries of extremities with intermittent claudication, bilateral legs (principal); I70.303 Unspecified atherosclerosis of unspecified type of bypass graft(s) of the extremities, bilateral legs; I74.3 Embolism and thrombosis of arteries of the lower extremities
CPT/HCPCS: 93922; 93925